=== PATIENT | female | born 1955 | race Caucasian/White ===

== ENCOUNTER 2020-02-08 12:11 | Outpatient (REF) | payer OTHER, SELFPAY | END 2020-02-08 12:12 | disposition home or self-care (01) | LOC: HO.BBR 12:11 | PROVIDERS: Visit Provider Internal Medicine Gastroenterology | DX: E83.110 Hereditary hemochromatosis (principal) | CPT/HCPCS: 99195 ==

== ENCOUNTER 2020-05-22 11:10 | Outpatient (REF) | payer OTHER, SELFPAY | END 2020-05-22 11:11 | disposition home or self-care (01) | LOC: HO.BBR 11:10 | PROVIDERS: Visit Provider Internal Medicine Gastroenterology | DX: Z13.89 Encounter for screening for other disorder (principal) ==

== ENCOUNTER 2020-08-22 10:58 | Outpatient (REF) | payer OTHER, SELFPAY | END 2020-08-22 10:59 | disposition home or self-care (01) | LOC: HO.BBR 10:58 | PROVIDERS: Visit Provider Internal Medicine Gastroenterology | DX: Z13.89 Encounter for screening for other disorder (principal) ==

== ENCOUNTER 2020-11-17 10:57 | Outpatient (REF) | payer OTHER, SELFPAY | END 2020-11-17 10:58 | disposition home or self-care (01) | LOC: HO.BBR 10:57 | PROVIDERS: PCP Internal Medicine; Visit Provider Internal Medicine Gastroenterology | DX: Z13.89 Encounter for screening for other disorder (principal) ==

== ENCOUNTER 2021-06-05 13:51 | Outpatient (REF) | payer OTHER, SELFPAY | END 2021-06-05 13:52 | disposition home or self-care (01) | LOC: HO.BBR 13:51 | PROVIDERS: Visit Provider Internal Medicine Gastroenterology | DX: Z13.89 Encounter for screening for other disorder (principal) ==

== ENCOUNTER 2021-06-26 09:48 | Outpatient (REF) | payer OTHER, SELFPAY | END 2021-06-26 09:49 | disposition home or self-care (01) | LOC: HO.BBR 09:48 | PROVIDERS: Visit Provider Internal Medicine Gastroenterology | DX: Z13.89 Encounter for screening for other disorder (principal) ==

== ENCOUNTER 2021-09-18 10:06 | Outpatient (REF) | payer OTHER, SELFPAY | END 2021-09-18 10:07 | disposition home or self-care (01) | LOC: HO.BBR 10:06 | PROVIDERS: Visit Provider Internal Medicine Gastroenterology | DX: Z13.89 Encounter for screening for other disorder (principal) ==

== ENCOUNTER 2021-12-24 10:13 | Outpatient (REF) | payer OTHER, SELFPAY | END 2021-12-24 10:14 | disposition home or self-care (01) | LOC: HO.BBR 10:13 | PROVIDERS: Visit Provider Internal Medicine Gastroenterology | DX: Z13.89 Encounter for screening for other disorder (principal) ==

== ENCOUNTER 2022-03-18 10:58 | Outpatient (REF) | payer OTHER, SELFPAY | END 2022-03-18 10:59 | disposition home or self-care (01) | LOC: HO.BBR 10:58 | PROVIDERS: Visit Provider Internal Medicine Gastroenterology | DX: Z13.89 Encounter for screening for other disorder (principal) ==

== ENCOUNTER 2022-06-10 10:52 | Outpatient (REF) | payer OTHER, SELFPAY | END 2022-06-10 10:53 | disposition home or self-care (01) | LOC: HO.BBR 10:52 | PROVIDERS: Visit Provider Internal Medicine Gastroenterology | DX: Z13.89 Encounter for screening for other disorder (principal) ==

== ENCOUNTER 2022-09-13 10:59 | Outpatient (REF) | payer OTHER, SELFPAY | END 2022-09-13 11:00 | disposition home or self-care (01) | LOC: HO.BBR 10:59 | PROVIDERS: Visit Provider Internal Medicine Gastroenterology | DX: Z13.89 Encounter for screening for other disorder (principal) ==

== ENCOUNTER 2023-03-02 10:01 | Outpatient (REF) | payer OTHER, MEDICARE, SELFPAY | END 2023-03-02 10:02 | disposition home or self-care (01) | LOC: HO.BBR 10:01 | PROVIDERS: PCP Internal Medicine; Visit Provider Internal Medicine Gastroenterology | DX: Z13.89 Encounter for screening for other disorder (principal) ==

== ENCOUNTER 2023-05-12 12:54 | Outpatient (REF) | payer OTHER, MEDICARE, SELFPAY | END 2023-05-12 12:55 | disposition home or self-care (01) | LOC: HO.BBR 12:54 | PROVIDERS: PCP Internal Medicine; Visit Provider Internal Medicine Gastroenterology | DX: Z13.89 Encounter for screening for other disorder (principal) ==

== ENCOUNTER 2023-07-13 11:07 | Outpatient (REF) | payer OTHER, MEDICARE, SELFPAY | END 2023-07-13 11:08 | disposition home or self-care (01) | LOC: HO.BBR 11:07 | PROVIDERS: PCP Internal Medicine; Visit Provider Internal Medicine Gastroenterology | DX: Z13.89 Encounter for screening for other disorder (principal) ==

== ENCOUNTER 2023-09-13 11:03 | Outpatient (REF) | payer MEDICARE, OTHER, SELFPAY | END 2023-09-13 11:04 | disposition home or self-care (01) | LOC: HO.BBR 11:03 | PROVIDERS: PCP Internal Medicine; Visit Provider Internal Medicine Gastroenterology | DX: Z13.89 Encounter for screening for other disorder (principal) ==

== ENCOUNTER 2023-11-16 10:59 | Outpatient (REF) | payer MEDICARE, OTHER, SELFPAY | END 2023-11-16 11:00 | disposition home or self-care (01) | LOC: HO.BBR 10:59 | PROVIDERS: PCP Internal Medicine; Visit Provider Internal Medicine Gastroenterology | DX: Z13.89 Encounter for screening for other disorder (principal) ==

== ENCOUNTER 2023-12-09 11:09 | Outpatient (REF) | payer MEDICARE, OTHER, SELFPAY | END 2023-12-09 11:10 | disposition home or self-care (01) | LOC: HO.BBR 11:09 | PROVIDERS: PCP Internal Medicine; Visit Provider Internal Medicine Gastroenterology | DX: Z13.89 Encounter for screening for other disorder (principal) ==

== ENCOUNTER 2024-02-23 11:12 | Outpatient (REF) | payer MEDICARE, OTHER, SELFPAY | END 2024-02-23 11:13 | disposition home or self-care (01) | LOC: HO.BBR 11:12 | PROVIDERS: PCP Internal Medicine; Visit Provider Internal Medicine Gastroenterology | DX: Z13.89 Encounter for screening for other disorder (principal) ==

== ENCOUNTER 2024-05-18 10:01 | Outpatient (REF) | payer MEDICARE, OTHER, SELFPAY | END 2024-05-18 10:02 | disposition home or self-care (01) | LOC: HO.BBR 10:01 | PROVIDERS: PCP Internal Medicine; Visit Provider Internal Medicine Gastroenterology | DX: Z13.89 Encounter for screening for other disorder (principal) ==

== ENCOUNTER 2024-06-22 11:10 | Outpatient (REF) | payer MEDICARE, OTHER, SELFPAY ==
--- OUTSIDE RECORDS SUMMARY | 2024-06-22 12:17 | XMS_ITS ---
Author Organization Valdo Azar MD Address [address] [facility] [address] [place] [phone] Care Team Providers Care [employer] Proprietor Name Role Phone Valdo Azar Primary Care Provider [phone] Allergies No Known Allergies Results Component Value Reference Range Notes Iron and TIBC-[id number] Reviewed date:08/19/2023 04:55:46 PM Interpretation: Performing Lab:[facility] [place], [address] [facility], Phone - [phone], Director - Mandeep Notes/Report: Iron Bind.Cap.(TIBC) 302 250-450 ug/dL UIBC 259 118-369 ug/dL Iron 43 27-139 ug/dL Iron Saturation 14 15-55 % Urinalysis, Complete-[id number] Reviewed date:08/19/2023 04:55:46 PM Interpretation: Performing Lab:[facility] [place], [address] [facility], Phone - [phone], Director - Dly Notes/Report: Specific [place] 1.015 1.005-1.030 pH 6.5 5.0-7.5 Urine-Color Yellow Yellow Appearance Clear Clear WBC Esterase Negative Negative Protein Negative Negative/Trace Glucose Negative Negative Ketones Negative Negative Occult Blood Negative Negative Bilirubin Negative Negative Urobilinogen,Semi-Qn 0.2 0.2-1.0 mg/dL Nitrite, Urine Negative Negative Microscopic Examination Micr oscopic follows if indicated. Microscopic Examination See below: Micr oscopic was indicated and was performed. WBC None seen 0 - 5 /hpf RBC 0-2 0 - 2 /hpf Epithelial Cells (non renal) None seen 0 - 10 /hpf Casts None seen None seen /lpf Bacteria None seen None seen/Few Ferritin-[id number] Reviewed date:08/19/2023 04:55:46 PM Interpretation: [facility], [address] [place] [address], Phone - [phone], Director - Dly Notes/Report: Ferritin 14 15-150 ng/mL CBC With Differential/Platel et-[id number] Reviewed date:08/19/2023 04:55:46 PM Interpretation: Performing Lab:[facility] [place], [address] [place] [address], Phone - [phone], Director - MDAmishay Notes/Report: WBC 7.8 3.4-10.8 x10E3/uL RBC 4.37 3.77-5.28 x10E6/uL Hemoglobin 12.8 11.1-15.9 g/dL Hematocrit 40.8 34.0-46.6 % MCV 93 79-97 fL MCH 29.3 26.6-33.0 pg MCHC 31.4 31.5-35.7 g/dL RDW 13.0 11.7-15.4 % Platelets 256 150-450 x10E3/uL Neutrophils 60 Not Estab. % Lymphs 33 Not Estab. % Monocytes 5 Not Estab. % Eos 1 Not Estab. % Basos 1 Not Estab. % Neutrophils (Absolute) 4.7 1.4-7.0 x10E3/uL Lymphs (Absolute) 2.6 0.7-3.1 x10E3/uL Monocytes(Absolute) 0.4 0.1-0.9 x10E3/uL Eos (Absolute) 0.1 0.0-0.4 x10E3/uL Baso (Absolute) 0.1 0.0-0.2 x10E3/uL Immature Granulocytes 0 Not Estab. % Immature Grans (Abs) 0.0 0.0-0.1 x10E3/uL Vitamin D, 60-Lwtasch-[id number] Reviewed date:08/19/2023 04:55:46 PM Interpretation: [facility]forming [facility], [address] [place] [address], Phone - [phone], Director - Dly Notes/Report: Vitamin D, 25-Hydroxy 38.5 30.0-100.0 ng/mL Vitamin D deficiency has been defined by the [place] of [employer] and an Endocrine Society practice guideline as a level of serum 25-OH vitamin D less than 20 ng/mL (1,2). The Endocrine Society went on to further define vitamin D insufficiency as a level between 21 and 29 ng/mL (2). 1. IOM ([place] of [employer]). 2010. Dietary reference intakes for calcium and D. [place]: The National Academies Press. 2. Gagandeep MF, Lisa NC, Nathan BAILEY, et al. Evaluation, treatment, and prevention of vitamin D deficiency: an Endocrine Society clinical practice guideline. JCEM. 2010; 96(7):1911-30. Comp. Metabolic Panel ([id number] Reviewed date:08/19/2023 04:55:47 PM Interpretation: Performing Lab:[facility] [place], [address] [facility], Phone - [phone], Director - Mandeep Notes/Report: Glucose 80 70-99 mg/dL BUN 19 8-27 mg/dL Creatinine 0.76 0.57-1.00 mg/dL eGFR 86 >59 mL/min/1.73 BUN/Creatinine Ratio 25 12-28 Sodium 142 134-144 mmol/L Potassium 3.9 3.5-5.2 mmol/L Chloride 103 96-106 mmol/L Carbon Dioxide, Total 24 20-29 mmol/L Calcium 9.7 8.7-10.3 mg/dL Protein, Total 7.4 6.0-8.5 g/dL Albumin 4.4 3.9-4.9 g/dL Globulin, Total 3.0 1.5-4.5 g/dL A/G Ratio 1.5 1.2-2.2 Bilirubin, Total 0.2 0.0-1.2 mg/dL Alkaline Phosphatase 98 44-121 IU/L AST (SGOT) 22 0-40 IU/L ALT (SGPT) 15 0-32 IU/L LP+Non-HDL Cholesterol-[id number] 5 Reviewed date:08/19/2023 04:55:47 PM Interpretation: Performing Lab:[facility], [address] [facility], [place], Phone - [phone], Director - Mandeep Notes/Report: Cholesterol, Total 184 100-199 mg/dL Triglycerides 157 0-149 mg/dL HDL Cholesterol 68 >39 mg/dL VLDL Cholesterol [place] 27 5-40 mg/dL LDL Chol Calc ([facility]) 89 0-99 mg/dL Non-HDL Cholesterol 116 0-129 mg/dL HCV Antibody-[id number] Reviewed date:08/19/2023 04:55:47 PM Interpretation: Performing Lab:[facility] [place], [address] [facility], [place], Phone - [phone], Director - Mandeep Notes/Report: Hep C Virus Ab Non Reactive Non Reactive HCV antibody alone does not differentiate between previously resolved infection and active infection. Equivocal and Reactive HCV antibody results should be followed up with an HCV RNA test to support the diagnosis of active HCV infection. PDF Report Reviewed date:08/19/2023 04:55:47 PM Interpretation: Performing Lab:[facility], [address] [facility], [place], Phone - [phone], Director - Mandeep Notes/Report: REASON FOR VISIT Annual Wellness Medications Medication SIG (Take, Route, Frequency, Duration) Notes Start Date End Date Status Fosamax 70 MG 1 tablet Orally once a week for 30 day(s) Active Calcium Citrate-Vitamin D Not-Taking Vitamin D 2000 UNIT 1 capsule Orally Onc e a day Not-Taking Social History Tobacco Use: Social History Observation Description Date Details (start date - stop date) Never Smoker NA - NA AUDIT-C (Standard) Question Answer Notes Did you have a drink contain ing alcohol in the past year? Yes How often did you have six o r more drinks on one occasion in the past year? Never (0 point) How many drinks did you have on a typical day when you were drinking in the past year? 1 or 2 drinks (0 point) How often did you have a dri nk containing alcohol in the past year? 2 to 3 times a week (3 points) Points 3 Interpretation Positive Tobacco Control (Standard) Question Answer Notes Tobacco use: Nonsmoker Problems Problem Type SNOMED Code ICD Code Onset Dates Problem Status W/U Status Risk Notes Problem Mixed hyperlipidemia (950638719) Mixed hyperlipidemia (E78.2) Active confirmed Vital Signs Height 5 ft in 08/09/2023 Weight 118.8 lbs 08/09/2023 BMI 23.2 kg/m2 08/09/2023 Temperature 96.4 degrees Fahrenheit 08/09/19 24 Heart Rate 78 /min 08/09/2023 Oximetry 98 % 08/09/2023 Blood pressure systolic 124 mm Hg 08/09/19 24 Blood pressure diastolic 56 mm Hg 024 Encounters Encounter Location Date Provider Diagnosis Valdo Azar MD [address] [phone] 08/09/2023 Valdo Azar Hereditary hemochromatosis E83.110 ; Age-related osteoporosis without current pathological fracture M81.0 ; Family history of malignant neoplasm of ovary Z80.41 ; Mixed hyperlipidemia E78.2 ; Vitamin D deficiency, unspecified E55.9 ; Encounter for general adult medical examination without abnormal findings Z00.00 ; Encounter for screening for malignant neoplasm of colon Z12.11 ; Encounter for screening mammogram for malignant neoplasm of breast Z12.31 ; Encounter for screening for osteoporosis Z13.820 ; Encounter for screening for cardiovascular disorders Z13.6 ; Encounter for immunization Z23 ; Encounter for antibody response examination Z01.84 and Encounter for screening for other viral diseases Z11.59 Assessments Encounter Date Diagnosis (ICD Code) Assessment Notes Treatment Notes Treatment Clinical Notes Section Notes 08/09/2023 Hereditary hemochromatosis (ICD-10 - E83.110) Stable with periodic phlebotomy. She has had to increase her phlebotomy to every 2 months. There may be a dietary issue where there is increased iron intake that she does not realize. Recommend she log her food intake and see where the increased iron intake is in where she can adjust and reduce her iron intake. Hopefully by doing this she will need less frequent phlebotomy 08/09/2023 Age-related osteoporosis without current pathological fracture (ICD-10 - M81.0) Continues on current medical therapy. She is about 5 years into therapy and after 7 years may need to reevaluate therapy options 08/09/2023 Family history of malignant neoplasm of ovary (ICD-10 - Z80.41) Stable with periodic follow-up with gynecology. Given increased risk for breast cancer can continue yearly mammograms as well 08/09/2023 Mixed hyperlipidemia (ICD-10 - E78.2) Check level to verify adequate control 08/09/2023 Vitamin D deficiency, unspecified (ICD-10 - E55.9) Fair control on prior labs as reviewed and recommend additional 2000 units of vitamin D daily for goal level of 50+ 08/09/2023 Encounter for general adult medical examination without abnormal findings (ICD-10 - Z00.00) General healthcare up-to-date. Check routine labs. Healthcare proxy and MOLST form package given for review and completion 08/09/2023 Encounter for screening for malignant neoplasm of colon (ICD-10 - Z12.11) Up-to-date on colon cancer screening 08/09/2023 Encounter for screening mammogram for malignant neoplasm of breast (ICD-10 - Z12.31) Up-to-date on breast cancer screening 08/09/2023 Encounter for screening for osteoporosis (ICD-10 - Z13.820) Up-to-date on osteoporosis screening 08/09/2023 Encounter for screening for cardiovascular disorders (ICD-10 - Z13.6) Blood pressure stable. Can check for comorbidity of hyperlipidemia and hyperglycemia and use this data to further assess risk 08/09/2023 Encounter for immunization (ICD-10 - Z23) Vaccines up-to-date 08/09/2023 Encounter for antibody response examination (ICD-10 - Z01.84) Titers have been checked in the past and is immune to rubeola 08/09/2023 Encounter for screening for other viral diseases (ICD-10 - Z11.59) Can screen for hepatitis C as is the general recommendation 08/09/2023 Other This note was created with voice dictation recognition software and may contain errors of grammar and syntax. Also labs were reviewed with patient. Plan Of Treatment Future Test Test Name Order Date Iron and TIBC-[id number] 01/31/2024 Ferritin-[id number] 01/31/2024 CBC With Differential/Platelet-[id number] Comp. Metabolic Panel ([id number] 2023 Next Appt Details Follow Up: 1 Year, Reason: A nnual Provider Name:Valdo Azar , 08/14/2024 01:15:00 PM, [address] [place] [address], [place] [address], [place], [place], [phone], Progress Notes * Heather SWIFT EDOB:1955 (68 yo F)Acc No.[id number]:08/09/2023 Progress Notes Patient:?Heather SWIFT Provider:?Valdo Azar MD :1955???Age:68 Y???Sex:Female D ate:08/09/2023 Address:[address] [place], [id number] Subjective: * Chief Complaints: * ???Annual Wellness * HPI: ???Depression Screening:?PHQ-2 (2015 Edition)?Little interest or pleasure in doing things??Not at all ?Feeling down, depressed, or hopeless??Not at all ?Total Score?0 ???Medicare Annual Visit:?Type of Visit?-?Subsequent Annual Wellness Visit ?Language or Communication barrier addressed?-?Yes ?Health Risk Assessment?- Do you currently use tobacco products??See Social History ?- How often do you exercise??See Social History ?- In the past two weeks, how often have you felt depressed, down or hopeless??See PHQ2 and PHQ9 ?- How many times have you fallen in your home??Never ?Immunization Status addressed?-?Yes ?Depression Screening?-?PHQ2 done ?Vision Screening?-?Yes, 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 * Surgical History:?varicose v ein ablation 04/2016Cesarean Section stapedectomy 01/2021 * Ocular Surgical History:? * Hospitalization/Major Diagno stic Procedure:?Denies Past Hospitalization * Family History:?Spouse: barb brambila 70 yrs, Healthy.?Father: 95 yrs, Pancreatic cancer at 78.?Mother: alive 100 yrs, HealthyHeart attack 2022.?Daughter(s): alive 36 yrs, Healthy.?Children: alive 33 yrs, Healthy.?Maternal aunt: ovarian cancer.?3 brother(s) , 3 sister(s) - healthy. 2 daughter(s) - healthy. .? (AWV) Family history verified no changes since last visit. * Social History:?Tobacco Use:?Tobacco Control (Standard)?Tobacco use:?Nonsmoker ???Drugs/Alcohol:?Drugs?Have you used drugs other than those for medical reasons in the past 12 months??No ?Caffeine?Intake:?1-2 cups per day ?Do you smoke marijuana?: Denies. ?Do you drink alcohol?: Yes, Socially. ???Miscellaneous:?Exercise: no. ???Household:?Household?Marital status:?Drug/Alcohol:?AUDIT-C (Standard)?Did you have a drink containing alcohol in the past year??Yes ?How often did you have six or more drinks on one occasion in the past year??Never (0 point) ?How many drinks did you have on a typical day when you were drinking in the past year??1 or 2 drinks (0 point) ?How often did you have a drink containing alcohol in the past year??2 to 3 times a week (3 points) ?Points?3 ?Interpretation?Positive * Medications:?TakingFosamax 7 0 MG Tablet 1 tablet Orally once a week Taking Fosamax 70 MG Tablet 1 tablet Orally once a week Not-Taking/PRNCalcium Citrate-Vitamin D Vitamin D 2000 UNIT Capsule 1 capsule Orally Once a day Not-Taking/PRN Calcium Citrate-Vitamin D Not-Taking/PRN Vitamin D 2000 UNIT Capsule 1 capsule Orally Once a day * Allergies:?N.K.D.A.no[Allerg ies Verified] Objective: * Vitals:?Temp:96.4F, HR:78/mi n, BP:Sitting Right Arm: 124/56mm Hg, Wt:118.8lbs, BMI:23.20Index, Ht:5 ft, Oxygen sat %:98%. * ???Past Orders: Lab:CBC WITH AUTO DIFF * Collection Date 02/18/2023 03/31/2021 Collection Time 08:24 AM 10:00 AM Order Date 02/18/2023 03/31/2021 BASO # 0.04 (Ref Range: 0-0.2 x10-3/uL) 0.03 (Ref Range: 0-0.2 x10-3/uL) BASO % 0.6 (Ref Range: %) 0.5 (Ref Range: %) EOS # 0.09 (Ref Range: 0-0.5 x10-3/uL) 0.12 (Ref Range: 0-0.5 x10-3/uL) EOS % 1.5 (Ref Range: %) 2.0 (Ref Range: %) HEMATOCRIT 44.5 (Ref Range: 35-47 %) 43.0 (Ref Range: 35-47 %) HEMOGLOBIN 14.9 (Ref Range: 11.5-16.0 g/dL) 14.4 (Ref Range: 11.5-16.0 g/dL) IMMATURE GRANULOCYTES % 0.3 (Ref Range: %) 0.3 (Ref Range: %) IMMATURE GRANULOCYTES # 0.02 (Ref Range: 0-0.03 x10-3/uL) 0.02 (Ref Range: 0-0.03 x10-3/uL) LYMPH # 1.70 (Ref Range: 1-5.0 x10-3/uL) 1.85 (Ref Range: 1-5.0 x10-3/uL) LYMPH % 27.6 (Ref Range: %) 30.9 (Ref Range: %) MCH 31.5 (Ref Range: 27-32 pg) 30.9 (Ref Range: 27-32 pg) MCHC 33.5 (Ref Range: 32-37 g/dL) 33.5 (Ref Range: 32-37 g/dL) MCV 94.1 (Ref Range: 79-98 fL) 92.3 (Ref Range: 79-98 fL) MONO # 0.43 (Ref Range: 0.2-1.0 x10-3/uL) 0.35 (Ref Range: 0.2-1.0 x10-3/uL) MONO % 7.0 (Ref Range: %) 5.8 (Ref Range: %) MEAN PLATELET VOLUME 10.0 (Ref Range: 7-11 fL) 10.7 (Ref Range: 7-11 fL) ABSOLUTE NEUT 3.89 (Ref Range: 1.5-7.0 x10-3/uL) 3.62 (Ref Range: 1.5-7.0 x10-3/uL) NEUT % 63.0 (Ref Range: %) 60.5 (Ref Range: %) NRBC # AUTO DIFF 0.00 (Ref Range: <0.1 x10-3/uL) 0.00 (Ref Range: <0.1 x10-3/uL) NRBC % AUTO DIFF 0.0 (Ref Range: <1 %) 0.0 (Ref Range: <1 %) PLT COUNT 248 (Ref Range: 130-400 x10-3/uL) 216 (Ref Range: 130-400 x10-3/uL) RBC 4.7 (Ref Range: 3.8-4.8 x10-6/uL) 4.7 (Ref Range: 3.8-4.8 x10-6/uL) RDW 13.3 (Ref Range: 11-15 %) 15.1?H (Ref Range: 11-15 %) WBC 6.2 (Ref Range: 4.8-10.8 x10-3/uL) 6.0 (Ref Range: 4.8-10.8 x10-3/uL) * Lab:COMPREHENSIVE METABOLIC PANEL * Collection Date 12/10/2022 12/29/2021 12/23/2020 0 Collection Time 07:37 AM 08:02 AM 07:56 AM 07:34 AM Order Date 12/10/2022 12/29/2021 12/23/2020 06/05/2019 ALBUMIN 3.7 (Ref Range: 3.2-5.0 G/dL) 3.6 (Ref Range: 3.2-5.0 G/dL) 3.9 (Ref Range: 3.2-5.0 G/dL) 3.6 (Ref Range: 3.2-5.0 G/dL) ALK PHOS 89 (Ref Range: 42-121 U/L) 88 (Ref Range: 42-121 U/L) 84 (Ref Range: 42-121 U/L) 85 (Ref Range: 42-121 U/L) SGPT 22 (Ref Range: 10-60 U/L) 26 (Ref Range: 10-60 U/L) 19 (Ref Range: 10-60 U/L) 56 (Ref Range: 10-60 U/L) ANION GAP 5 (Ref Range: 3-11) 7 (Ref Range: 3-11) 8 (Ref Range: 3-11) 5 (Ref Range: 3-11) SGOT 18 (Ref Range: 10-42 U/L) 24 (Ref Range: 10-42 U/L) 19 (Ref Range: 10-42 U/L) 36 (Ref Range: 10-42 U/L) BILI,TOTAL 0.6 (Ref Range: 0.0-1.4 mg/dL) 0.3 (Ref Range: 0.0-1.4 mg/dL) 0.5 (Ref Range: 0.0-1.4 mg/dL) 0.5 (Ref Range: 0.0-1.4 mg/dL) BUN 12 (Ref Range: 5-25 mg/dL) 17 (Ref Range: 5-25 mg/dL) 13 (Ref Range: 5-25 mg/dL) 18 (Ref Range: 5-25 mg/dL) CALCIUM 8.4?L (Ref Range: 8.5-10.5 mg/dL) 9.2 (Ref Range: 8.5-10.5 mg/dL) 8.6 (Ref Range: 8.5-10.5 mg/dL) 8.4?L (Ref Range: 8.5-10.5 mg/dL) CHLORIDE 110 (Ref Range: 96-110 mmol/L) 110 (Ref Range: 96-110 mmol/L) 105 (Ref Range: 96-110 mmol/L) 109 (Ref Range: 96-110 mmol/L) CO2 29 (Ref Range: 21-32 mmol/L) 27 (Ref Range: 21-32 mmol/L) 28 (Ref Range: 21-32 mmol/L) 27 (Ref Range: 21-32 mmol/L) CREAT 0.79 (Ref Range: 0.5-1.1 mg/dL) 0.87 (Ref Range: 0.5-1.1 mg/dL) 0.73 (Ref Range: 0.5-1.1 mg/dL) 0.78 (Ref Range: 0.5-1.1 mg/dL) GLOMERULAR FILTRATION RATE 83 (Ref Range: >60) > 60 > 60 > 60 GLUCOSE 83 (Ref Range: 70-100 mg/dL) 86 (Ref Range: 70-100 mg/dL) 77 (Ref Range: 70-100 mg/dL) 87 (Ref Range: 70-100 mg/dL) POTASSIUM 4.2 (Ref Range: 3.5-5.5 mmol/L) 4.4 (Ref Range: 3.5-5.5 mmol/L) 4.3 (Ref Range: 3.5-5.5 mmol/L) 4.5 (Ref Range: 3.5-5.5 mmol/L) SODIUM 144 (Ref Range: 135-145 mEq/L) 144 (Ref Range: 135-145 mEq/L) 141 (Ref Range: 135-145 mEq/L) 141 (Ref Range: 135-145 mEq/L) TOTAL PROTEIN 7.2 (Ref Range: 6.0-8.0 G/dL) 6.8 (Ref Range: 6.0-8.0 G/dL) 7.4 (Ref Range: 6.0-8.0 G/dL) 6.9 (Ref Range: 6.0-8.0 G/dL) * Lab:LIPID PROFILE * Collection Date 12/10/2022 12/29/2021 12/23/2020 0 Collection Time 07:37 AM 08:02 AM 07:56 AM 07:34 AM Order Date 12/10/2022 12/29/2021 12/23/2020 06/05/2019 CHOLESTEROL 153 (Ref Range: 0-200 mg/dL) 151 (Ref Range: 0-200 mg/dL) 175 (Ref Range: 0-200 mg/dL) 163 (Ref Range: 0-200 mg/dL) HDL CHOLESTEROL 66 (Ref Range: >40 mg/dL) 55 (Ref Range: >40 mg/dL) 70 (Ref Range: >40 mg/dL) 66 (Ref Range: >40 mg/dL) LDL CALCULATED 76 (Ref Range: 0-100 mg/dL) 84 (Ref Range: 0-100 mg/dL) 95 (Ref Range: 0-100 mg/dL) 83 (Ref Range: 0-100 mg/dL) TC-HDLC RATIO 2.3 (Ref Range: 0-4.4 mg/dL) 2.8 (Ref Range: 0-4.4 mg/dL) 2.5 (Ref Range: 0-4.4 mg/dL) 2.5 (Ref Range: 0-4.4 mg/dL) TRIGLYCERIDES 58 (Ref Range: 0-150 mg/dL) 62 (Ref Range: 0-150 mg/dL) 52 (Ref Range: 0-150 mg/dL) 71 (Ref Range: 0-150 mg/dL) * Lab:FERRITIN * Collection Date 02/18/2023 12/10/2022 12/29/2021 1 Collection Time 08:24 AM 07:37 AM 08:02 AM 10:00 AM Order Date 02/18/2023 12/10/2022 12/29/2021 03/31/2021 FERRITIN 75 (Ref Range: 8-252 ng/mL) 25 (Ref Range: 8-252 ng/mL) 18 (Ref Range: 8-252 ng/mL) 23 (Ref Range: 8-252 ng/mL) * Lab:TOTAL IRON BINDING CAPAC ITY * Collection Date 02/18/2023 12/29/2021 03/31/2021 Collection Time 08:24 AM 08:02 AM 10:00 AM Order Date 02/18/2023 12/29/2021 03/31/2021 % FE SATURATION 60?H (Ref Range: 15-50 %) 13?L (Ref Range: 15-50 %) 42 (Ref Range: 15-50 %) IRON (FE) 155?H (Ref Range: 40-150 ug/dL) 31?L (Ref Range: 40-150 ug/dL) 110 (Ref Range: 40-150 ug/dL) TOTAL IRON BINDING CAPACITY 257 (Ref Range: 250-450 ug/dL) 236?L (Ref Range: 250-450 ug/dL) 259 (Ref Range: 250-450 ug/dL) * Lab:VITAMIN D, 25-HYDROXY * Collection Date 12/10/2022 12/29/2021 12/23/2020 0 Collection Time 07:37 AM 08:02 AM 07:56 AM 07:34 AM Order Date 12/10/2022 12/29/2021 12/23/2020 06/05/2019 VITAMIN D, 25-HYDROXY 29?L (Ref Range: 30-80 ng/mL) 40 (Ref Range: 30-80 ng/mL) 39 (Ref Range: 30-80 ng/mL) 49 (Ref Range: 30-80 ng/mL) * Lab:URINALYSIS * Collection Date 12/10/2022 12/29/2021 12/23/2020 0 Collection Time 07:37 AM 08:02 AM 07:56 AM 07:34 AM Order Date 12/10/2022 12/29/2021 12/23/2020 06/05/2019 BACTERIA, URINE NEGATIVE (Ref Range: NEGATIVE) NEGATIVE (Ref Range: NEGATIVE) NR NR WBC, URINE 9?H (Ref Range: 0-4 /HPF) 5?H (Ref Range: 0-4 /HPF) NR NR BILIRUBIN, URINE NEGATIVE (Ref Range: NEGATIVE) NEGATIVE (Ref Range: NEGATIVE) NEGATIVE (Ref Range: NEGATIVE) NEGATIVE (Ref Range: NEGATIVE) BLOOD, URINE NEGATIVE (Ref Range: NEGATIVE) NEGATIVE (Ref Range: NEGATIVE) NEGATIVE (Ref Range: NEGATIVE) NEGATIVE (Ref Range: NEGATIVE) HYALINE CAST, URINE NR 1 (Ref Range: 0-3 /LPF) NR NR EPITH CELLS, URINE 11 (Ref Range: 0-60 /LPF) 17 (Ref Range: 0-60 /LPF) NR NR GLUCOSE, (UA) NEGATIVE (Ref Range: NEGATIVE mg/dL) NEGATIVE (Ref Range: NEGATIVE mg/dL) NEGATIVE (Ref Range: NEGATIVE mg/dL) NEGATIVE (Ref Range: NEGATIVE mg/dL) KETONE, URINE NEGATIVE (Ref Range: NEGATIVE mg/dL) NEGATIVE (Ref Range: NEGATIVE mg/dL) NEGATIVE (Ref Range: NEGATIVE mg/dL) NEGATIVE (Ref Range: NEGATIVE mg/dL) LEUKOCYTE ESTERASE, URINE SMALL?A (Ref Range: NEGATIVE) SMALL?A (Ref Range: NEGATIVE) NEGATIVE (Ref Range: NEGATIVE) NEGATIVE (Ref Range: NEGATIVE) NITRITE, URINE NEGATIVE (Ref Range: NEGATIVE) NEGATIVE (Ref Range: NEGATIVE) NEGATIVE (Ref Range: NEGATIVE) NEGATIVE (Ref Range: NEGATIVE) PH, URINE 7.0 (Ref Range: 5.0-8.0) 6.0 (Ref Range: 5.0-8.0) 7.5 (Ref Range: 5.0-8.0) 6.5 (Ref Range: 5.0-8.0) PROTEIN, URINE NEGATIVE (Ref Range: <= TRACE mg/dl) NEGATIVE (Ref Range: <= TRACE mg/dl) NEGATIVE (Ref Range: <= TRACE mg/dl) NEGATIVE (Ref Range: <= TRACE mg/dl) RBC, URINE 3 (Ref Range: 0-4 /HPF) 2 (Ref Range: 0-4 /HPF) NR NR SPECIFIC GRAVITY, URINE 1.016 (Ref Range: 1.003-1.030) 1.017 (Ref Range: 1.003-1.030) 1.010 (Ref Range: 1.003-1.030) 1.021 (Ref Range: 1.003-1.030) UROBILINOGEN, URINE 0.2 (Ref Range: 0.2-1.0 E.U./dL) 0.2 (Ref Range: 0.2-1.0 E.U./dL) 0.2 (Ref Range: 0.2-1.0 E.U./dL) 0.2 (Ref Range: 0.2-1.0 E.U./dL) ???Lab:HEPATITIS C VIRUS SCREEN (Order Date - 12/10/2022) (Collection Date & Time - 12/10/2022 07:37 AM)?ValueReference Range?HEPATITIS C VIRUS SCREENNEGATIVENEGATIVE - ???Lab:MEASLES PROFILE (Order Date - 06/05/2019) (Collection Date & Time - 06/05/2019 07:34 AM)?ValueReference Range?MEASLES IGG QUANT> 300.0 >=16.5 - AU/mL?MEASLES IGGPOSITIVEPOSITIVE - * Imaging:MAMMOGRAM, SCREENING * Performed Date 08/03/2022 10:09 AM Order Date 08/03/2022 03/14/2015 06/22/2016 06/28/2017 * Imaging:Miriam Dexa Axial Skele ton * Performed Date 07/23/2022 06/30/2018 08:32 AM Order Date 08/02/2022 06/30/2018 Clinical Info: this was already del angelaidan JohnsonJERRYNati 08/03/2022 12:08:35 PM EDT > * Imaging:Colonoscopy * Performed Date Order Date 02/20/2008 08/26/2017 * Examination: ???General Examination: ?GENERAL APPEARANCE:?Age appropriate, in no acute distress, well developed, well nourished.?HEAD:?normocephalic, atraumatic.?EYES:?extraocular movement intact (EOMI), sclera non-icteric.?NECK/THYROID:?neck supple, full range of motion, no thyromegaly.?LYMPH NODES:?no cervical adenopathy.?HEART:?regular rate and rhythm, S1, S2 normal.?LUNGS:?clear to auscultation bilaterally.?BACK:?no kyphosis, no scoliosis.?EXTREMITIES:?no clubbing, cyanosis, or edema.?NEUROLOGIC:?nonfocal, alert and oriented, gait normal, motor strength grossly normal upper and lower extremities, no tremor.?PSYCH:?alert, oriented, good eye contact.?Mini Cog: ?Word Recall?Word List Version: 2, Score: 3 points.?Clock Draw?Score: 2 points.?Total Score?Score: 5 points.? 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13.?Encounter for screening for other viral diseases - Z11.59? Plan: * Treatment: ? Value Reference Range ?Specific [place] 1.015 1.005- 1.030 - * ?pH 6.5 5.0-7.5 - * ?Urine-Color Yellow Yellow - * ?Appearance Clear Clear - * ?WBC Esterase Negative Negative - * ?Protein Negative Negative/Trace - * ?Glucose Negative Negative - * ?Ketones Negative Negative - * ?Occult Blood Negative Negative - * ?Bilirubin Negative Negative - * ?Urobilinogen,Semi-Qn 0.2 0. 2-1.0 - mg/dL * ?Nitrite, Urine Negative Negative - * ?WBC None seen 0 - 5 - /hpf * ?RBC 0-2 0 - 2 - /hpf * ?Epithelial Cells (non renal) None seen 0 - 10 - /hpf * ?Casts None seen None seen - /lp f * ?Bacteria None seen None seen/Few - * ?Microscopic Examination See below: - * This lab was reviewed by Nicko Azar on 08/19/2023 at 16:55 PM EDT ?LAB: CBC With Differential/Platelet-[id number]* ? Value Reference Range ?WBC 7.8 3.4-10.8 - x10E 3/uL * ?RBC 4.37 3.77-5.28 - x10 E6/uL * ?Hemoglobin 12.8 11.1-15.9 - g/dL * ?Hematocrit 40.8 34.0-46.6 - % * ?MCV 93 79-97 - fL * ?MCH 29.3 26.6-33.0 - pg * ?MCHC 31.4 L 31.5-35.7 - g/d L * ?RDW 13.0 11.7-15.4 - % * ?Platelets 256 150-450 - x10 E3/uL * ?Neutrophils 60 Not Estab. - % * ?Lymphs 33 Not Estab. - % * ?Monocytes 5 Not Estab. - % * ?Eos 1 Not Estab. - % * ?Basos 1 Not Estab. - % * ?Neutrophils (Absolute) 4.7 1.4-7.0 - x10E3/uL * ?Lymphs (Absolute) 2.6 0.7-3 .1 - x10E3/uL * ?Monocytes(Absolute) 0.4 0.1 -0.9 - x10E3/uL * ?Eos (Absolute) 0.1 0.0-0.4 - x10E3/uL * ?Baso (Absolute) 0.1 0.0-0.2 - x10E3/uL * ?Immature Granulocytes 0 N ot Estab. - % * ?Immature Grans (Abs) 0.0 0. 0-0.1 - x10E3/uL * This lab was reviewed by Nicko Azar on 08/19/2023 at 16:55 PM EDT ?LAB: Comp. Metabolic Panel ([id number]* ? Value Reference Range ?Glucose 80 70-99 - mg/dL * ?BUN 19 8-27 - mg/dL * ?Creatinine 0.76 0.57-1.00 - mg/dL * ?BUN/Creatinine Ratio 25 12 -28 - * ?Sodium 142 134-144 - mmol/ L * ?Potassium 3.9 3.5-5.2 - mmo l/L * ?Chloride 103 96-106 - mmol/ L * ?Carbon Dioxide, Total 24 2 0-29 - mmol/L * ?Calcium 9.7 8.7-10.3 - mg/d L * ?Protein, Total 7.4 6.0-8.5 - g/dL * ?Albumin 4.4 3.9-4.9 - g/dL * ?Globulin, Total 3.0 1.5-4.5 - g/dL * ?A/G Ratio 1.5 1.2-2.2 - * ?Bilirubin, Total 0.2 0.0-1. 2 - mg/dL * ?Alkaline Phosphatase 98 44 -121 - IU/L * ?AST (SGOT) 22 0-40 - IU/L * ?ALT (SGPT) 15 0-32 - IU/L * ?eGFR 86 >59 - mL/min/1. 73 * This lab was reviewed by Nicko Azar on 08/19/2023 at 16:55 PM EDT Clinical Notes: General healthcare up-to-date. Check routine labs. Healthcare proxy and MOLST form package given for review and completion??2.?Hereditary hemochromatosis?LAB: Iron and TIBC-[id number]* ? Value Reference Range ?Iron Bind.Cap.(TIBC) 302 25 0-450 - ug/dL * ?UIBC 259 118-369 - ug/dL * ?Iron 43 27-139 - ug/dL * ?Iron Saturation 14 L 15-55 - % * This lab was reviewed by Nicko Azar on 08/19/2023 at 16:55 PM EDT ?LAB: Ferritin-[id number]* ? Value Reference Range ?Ferritin 14 L 15-150 - ng/mL * This lab was reviewed by Nicko Azar on 08/19/2023 at 16:55 PM EDT ?LAB: CBC With Differential/Platelet-[id number] (Ordered for 01/31/2024) ?LAB: Iron and TIBC-896214 (Ordered for 01/31/2024) ?LAB: Comp. Metabolic Panel ([id number] (Ordered for 01/31/2024) ?LAB: Ferritin-[id number] (Ordered for 01/31/2024) Clinical Notes: Stable with periodic phlebotomy. She has had to increase her phlebotomy to every 2 months. There may be a dietary issue where there is increased iron intake that she does not realize.Recommend she log her food intake and see where the increased iron intake is in where she can adjust and reduce her iron intake. Hopefully by doing this she will need less frequent phlebotomy? 3.?Age-related osteoporosis without current pathological fracture? Clinical Notes: Continues on current medical therapy. She is about 5 years into therapy and after 7years may need to reevaluate therapy options??4.?Family history of malignant neoplasm of ovary? Clinical Notes: Stable with periodic follow-up with gynecology. Given increased risk for breast cancer can continue yearly mammograms as well??5.?Mixed hyperlipidemia?LAB: LP+Non-HDL Cholesterol-[id number]* ? Value Reference Range ?Cholesterol, Total 184 100- 199 - mg/dL * ?Triglycerides 157 H 0-149 - m g/dL * ?HDL Cholesterol 68 >39 - m g/dL * ?VLDL Cholesterol Kavon 27 5- 40 - mg/dL * ?LDL Chol Calc ([facility]) 89 0-9 9 - mg/dL * ?Non-HDL Cholesterol 116 0-1 29 - mg/dL * This lab was reviewed by Nicko Azar on 08/19/2023 at 16:55 PM EDT Clinical Notes: Check level to verify adequate control??6.?Vitamin D deficiency, unspecified?LAB: Vitamin D, 59-Bejuhis-460224* ? Value Reference Range ?Vitamin D, 25-Hydroxy 38.5 3 0.0-100.0 - ng/mL * This lab was reviewed by Nicko Azar on 08/19/2023 at 16:55 PM EDT Clinical Notes: Fair control on prior labs as reviewed and recommend additional 2000 units of vitamin D daily for goal level of 50+??7.?Encounter for screening for malignant neoplasm of colon? Clinical Notes: Up-to-date on colon cancer screening??8.?Encounter for screening mammogram for malignant neoplasm of breast? Clinical Notes: Up-to-date on breast cancer screening??9.?Encounter for screening for osteoporosis? Clinical Notes: Up-to-date on osteoporosis screening??10.?Encounter for screening for cardiovascular disorders? Clinical Notes: Blood pressure stable. Can check for comorbidity of hyperlipidemia and hyperglycemia and use this data to further assess risk?? 11.?Encounter for immunization? Clinical Notes: Vaccines up-to-date??12.?Encounter for antibody response examination? Clinical Notes: Titers have been checked in the past and is immune to rubeola?? 13.?Encounter for screening for other viral diseases?LAB: HCV Antibody-[id number]* ? Value Reference Range ?Hep C Virus Ab Non Reactive Non Reac tive - * This lab was reviewed by Nicko Azar on 08/19/2023 at 16:55 PM EDT Clinical Notes: Can screen for hepatitis C as is the general recommendation?? 14.?Others? Clinical Notes: This note was created with voice dictation recognition software and may contain errors of grammar and syntax. Also labs were reviewed with patient.?? * Procedure Codes:?1124F ACP D ISCUSS-NO DSCNMKR DOCD, Modifiers: 25 * Preventive Medicine:? ??YOUR PREVENTIVE WELLNESS PLAN:?Prenar?The Recommended Frequency is:?1 dose age 65+ ?Breast Cancer Screening (Mammogram):?The Recommended Frequency is:?Every 1 year, age 50-74 (without family history), Every 2 year, age 40-50 (without family history) ?Osteoporosis Screening (Bone Density Measurement):?The Recommended Frequency is:?Routinely, for women ages 65+ ?Colorectal Cancer Screening:?The Recommended Frequency is:?Every 10 years, Colonoscopy, Every 3 years, Cologuard ?Pneumococcal (Pneumonia) Vaccine:?The Recommended Frequency is:?1 dose age 65+ ?Influenza (Flu) Vaccine:?The Recommended Frequency is:?Annually ??Counseling:?BP Management:?LIFESTYLE RECOMMENDATION:?Lifestyle education regarding hypertension ?PHYSICAL ACTIVITY RECOMMENDATION:?Given encouragement to exercise ??Immunizations:?Hep A?06/07/2017.?Hep B?.?TdaP?Last Tdap was administered?04/19/2018 ?Tetanus?Last Tetanus was administered?10/16/2007 ?Influenza?Last Influenza was administered?02/17/2023 ?COVID?[place]?Pfizer ?First Dose?04/22/2020 ?Second Dose?05/13/2020 ?PCV 20 (Prevnar)?Last PCV 20 was administered?08/09/23 ??Screenings:?Breast Cancer Screening:?Date of most recent screening:?08/03/2022 ?Colon cancer screening?Provider recommendation:?10 years ?Date of most recent screening:?08/26/2017 ?Osteoporosis Screening:?Date of most recent screening:?08/02/2022 * Follow Up:?1 Year (Reason: A nnual) Care Plan: * Problems:? * Images: Billing Information: * Visit Code:? G0439 Subsequent Annual Wellness. G0442 Annual Alcohol Misuse Screening, 15 min. Modifiers: 25 G0446 Cardiovascular Screening. Modifiers: 25 G0444 Annual Depression Screening, 15 min. Modifiers: 59 * Procedure Codes:? 1124F ACP DISCUSS-NO DSCNMKR DOCD. Modifiers: 25 * Sign off status: Completed true * Provider:?Valdo Azar MD Date:?08/08 Generated for Janette lo/Stan/eTransmitting on:?06/22/2024 12:17 PM EST History and Physical Notes * HPI (History of Present Illness) Category Sub-Category Detail Notes Category Not es Medicare Annual Visit Type of Visit -: Subsequ ent Annual Wellness Visit Language or Communication gerard ng addressed -: Yes Health Risk Assessment - Do you currentl y use tobacco products?: See Social History - How often do you exercise?: See Social History - In the past two weeks, how often have you felt depressed, down or hopeless?: See PHQ2 and PHQ9 - How many times have you fallen in your home?: Never Immunization Status addressed -: Yes Vision Screening -: Yes, 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 Depression Screening -: PHQ2 done Hearing Screening -: Yes, no gross abnormalities Fall Risk and Home Safety Get Up and Go Evaluati on: under 12 seconds Medication evaluation and reconcilliatio n performed: Yes Psychosocial Risks -: No overt psychoso cial risks shown, observed, or mentioned Behavioral Risks -: Patient seems armond y well adjusted and no behavioral issues noted Activities of daily living -: Not impaired Cognitive Screening -: No overt cognitiv e deficiency is apparent by direct observation Depression Screening PHQ-2 (2015 Edition) Little interest or pleasure in doing things?: Not at all Feeling down, depressed, or hopeless?: N ot at all Total Score: 0 Examination Category Sub-Category Detail Notes Category Not es General Examination GENERAL APPEARANCE: Age appr opriate, in no acute distress, well developed, well nourished HEAD: normocephalic, atrau matic EYES: extraocular movement intact (EOMI), sclera non-icteric NECK/THYROID: neck supple, full ra nge of motion, no thyromegaly HEART: regular rate and rhy thm, S1, S2 normal LUNGS: clear to auscultatio n bilaterally NEUROLOGIC: nonfocal, alert and oriented, gait normal, motor strength grossly normal upper and lower extremities, no tremor EXTREMITIES: no clubbing, cyanosi s, or edema BACK: no kyphosis, no scol iosis LYMPH NODES: no cervical adenopat hy PSYCH: alert, oriented, goo d eye contact Mini Cog Word Recall Word List Version: 2, Score: 3 points Clock Draw Score: 2 points Total Score Score: 5 points
--- OUTSIDE RECORDS SUMMARY | 2024-06-22 12:18 | XMS_ITS | Patient Health Record ---
Author Organization Valdo Nguyen MD Address [address] [place] [phone] Care Team Providers [employer] Name Role Phone Valdo Nguyen Primary Care Provider Allergies No Known Allergies Results Component Value Reference Range Notes Iron and TIBC-[id number] Reviewed date:08/19/2023 04:55:46 PM Interpretation: Performing Lab:[facility] [place], [address] [facility], Phone - [phone], Director - Dly Notes/Report: Iron Bind.Cap.(TIBC) 302 250-450 ug/dL UIBC 259 118-369 ug/dL Iron 43 27-139 ug/dL Iron Saturation 14 15-55 % Urinalysis, Complete-[id number] Reviewed date:08/19/2023 04:55:46 PM Interpretation: Performing Lab:[facility] [place], [address] [facility], Phone - [phone], Director - MDAmishay Notes/Report: Specific [place] 1.015 1.005-1.030 pH 6.5 5.0-7.5 Urine-Color Yellow [...] seen /lpf Bacteria None seen None seen/Few Ferritin-877383 Reviewed date:08/19/2023 04:55:46 PM Interpretation: [facility]forming [facility], [address] [place] [address], Phone - [phone], Director - Mandeep Notes/Report: Ferritin 14 15-150 ng/mL CBC With Differential/Platel et-[id number] Reviewed date:08/19/2023 04:55:46 PM Interpretation: Performing Lab:[facility] [place], [address] [place] [address], Phone - [phone], Director - Mandeep Notes/Report: WBC 7.8 3.4-10.8 x10E3/uL RBC 4.37 [...] Grans (Abs) 0.0 0.0-0.1 x10E3/uL Vitamin D, 66-Xasnlix-225507 Reviewed date:08/19/2023 04:55:46 PM Interpretation: Performing [facility], [address] [place] [address], Phone - [phone], Director - Mandeep Notes/Report: Vitamin D, 25-Hydroxy 38.5 30.0-100.0 ng/mL Vitamin D deficiency has been defined by the Queen of Medicine and an Endocrine Society practice guideline as a level of serum 25-OH vitamin D less than 20 ng/mL (1,2). The Endocrine Society went on to further define vitamin D insufficiency as a level between 21 and 29 ng/mL (2). 1. IOM (Queen of Medicine). 2010. Dietary reference intakes for calcium and D. [place]: The National Academies Press. 2. Gagandeep MF, Lisa NC, Nathan BAILEY, et al. Evaluation, treatment, and prevention of vitamin D deficiency: an Endocrine Society clinical practice guideline. JCEM. 2010; 967):1911-30. Comp. Metabolic Panel (14)-3 Reviewed date:08/19/2023 04:55:47 PM Interpretation: Performing Lab:[facility] [place], [address] [facility], Phone - [phone], Director - Mandeep Notes/Report: Glucose 80 70-99 [...] IU/L ALT (SGPT) 15 0-32 IU/L LP+Non-HDL Cholesterol-80140 5 Reviewed date:08/19/2023 04:55:47 PM Interpretation: Performing Lab:[facility] [place], [address] [facility], [place], Phone - [phone], Director - Mandeep Notes/Report: Cholesterol, Total 184 100-199 mg/dL Triglycerides 157 0-149 mg/dL HDL Cholesterol 68 >39 mg/dL VLDL Cholesterol Kavon 27 5-40 mg/dL LDL Chol Calc (NIH) 89 0-99 mg/dL Non-HDL Cholesterol 116 0-129 mg/dL HCV Antibody-013018 Reviewed date:08/19/2023 04:55:47 PM Interpretation: Performing Lab:[facility] [place], [address], [place], Phone - [phone], Director - Mandeep Notes/Report: Hep C Virus Ab Non Reactive Non Reactive HCV antibody alone does not differentiate between previously resolved infection and active infection. Equivocal and Reactive HCV antibody results should be followed up with an HCV RNA test to support the diagnosis of active HCV infection. PDF Report Reviewed date:08/19/2023 04:55:47 PM Interpretation: Performing Lab:[facility] [place], [address], [place], Phone - [phone], Director - Mandeep Notes/Report: Miriam Screening Digital Reviewed date:08/19/2023 04:55:46 PM Interpretation: Performing Lab: Notes/Report: Original Ordering Provider: VALDO NGUYEN MD [facility] Reason For Referral No Information Medications Medication SIG (Take, Route, Frequency, Duration) Notes Start Date End Date Status Fosamax 70 MG 1 tablet Orally once a week for 30 day(s) Active Calcium Citrate-Vitamin D Not-Taking Vitamin D 2000 UNIT 1 capsule Orally Onc e a day Not-Taking Immunizations Vaccine Route Administration Date Status Comments *PREVNAR 20 Unknown 06/13/2023 Administered *Tdap IM Intramuscular 04/19/2018 Administered COVID 19 (Pfizer 12+) Unknown 08/28/2021 Administered COVID-19 Pfizer BiValent Booster Unknown 01/22/2022 Administered QHHDS-24-Pjfwig Vaccine Unknown 04/22/2020 Administered VPZKH-48-Wqgdic Vaccine Unknown 05/13/2020 Administered NKNEG-47-Beqxgt Vaccine Unknown 02/17/2021 Administered Hep A, adult Unknown 07/18/2008 Administered Hep A, adult Unknown 06/07/2017 Administered Hep B, adult dosage, for intramuscular use Unknown 06/07/2017 Administered Hep B, adult dosage, for intramuscular use Unknown 09/22/2017 Administered Hep B, adult dosage, for intramuscular use IM Intramuscular 12/29/2017 Administered Mfd by [employer] Influenza Unknown 03/02/2018 Administered Influenza Unknown 01/31/2020 Administered patient awar e Influenza, seasonal, injectable, preservative free, 4 yrs and above Unknown 02/16/2016 Administered Est date - given at work Influenza-Afluria (IIV4) Unknown 02/17/2023 Administered Td (adult) preservative free Unknown 10/16/2007 Administered Social History Tobacco Use: Social History Observation [...] Problem Status W/U Status Risk Notes Problem Vitamin D deficiency (94242884) Vitamin D deficiency, unspecified (E55.9) Active confirmed Problem Mixed hyperlipidemia (589836602) Mixed hyperlipidemia (E78.2) Active confirmed Problem Hereditary hemochromatosis (69870747) Hereditary hemochromatosis (E83.110) Active confirmed Problem Hypocalcemia (4267791) Hypocalcemia (E83.51) Active confirmed Problem Age-related osteoporosis (615971066) Age-related osteoporosis without current pathological fracture (M81.0) Active confirmed Problem Family history of malignant neoplasm of ovary (153180296) Family history of malignant neoplasm of ovary (Z80.41) Active confirmed Problem 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 confirmed Problem Hemangioma of skin and subcutaneous tissue (394092520) Hemangioma of skin and subcutaneous tissue (D18.01) Problem resolved confirmed Vital Signs Heart Rate 78 /min 08/09/2023 Temperature 96.4 degrees Fahrenheit 08/09/2023 Blood pressure diastolic 56 mm Hg 08/09/2023 Oximetry 98 % 08/09/2023 Height 5 ft in 08/09/2023 Blood pressure systolic 124 mm Hg 08/09/2023 Weight 118.8 lbs 08/09/2023 BMI 23.2 kg/m2 08/09/2023 Encounters Encounter Location Date Provider Diagnosis Valdo Nguyen MD [address] [id number] 08/09/2023 Valdo Nguyen Hereditary hemochromatosis E83.110 ; Age-related osteoporosis without [...] for screening for other viral diseases Z11.59 Valdo Nguyen MD [address] [id number] 11/09/2023 Valdo Nguyen Assessments Encounter Date Diagnosis (ICD Code) Assessment [...] were reviewed with patient. Plan Of Treatment Pending Test Test Name Order Date COMPREHENSIVE METABOLIC PANEL 12/10/2022 MAGNESIUM 12/10/2022 PTH, INTACT 12/10/2022 CBC 08/02/2022 CBC 05/09/2019 CBC 07/29/2020 CBC 07/29/2021 CBC 04/06/2017 COMPREHENSIVE METABOLIC PANEL 04/06/2017 COMPREHENSIVE METABOLIC PANEL 07/29/2021 COMPREHENSIVE METABOLIC PANEL 07/29/2020 COMPREHENSIVE METABOLIC PANEL 05/09/2019 COMPREHENSIVE METABOLIC PANEL 08/02/2022 FERRITIN 07/29/2021 FERRITIN 08/02/2022 FERRITIN 07/29/2020 FERRITIN 05/09/2019 FERRITIN 04/06/2017 HEPATITIS C VIRUS SCREEN 08/02/2022 LIPID PROFILE 08/02/2022 LIPID PROFILE 07/29/2021 LIPID PROFILE 05/09/2019 LIPID PROFILE 07/29/2020 LIPID PROFILE 04/06/2017 TOTAL IRON BINDING CAPACITY 07/29/2021 URINALYSIS 08/02/2022 URINALYSIS 04/06/2017 URINALYSIS 05/09/2019 URINALYSIS 07/29/2020 URINALYSIS 07/29/2021 VITAMIN D, 25-HYDROXY 08/02/2022 VITAMIN D, 25-HYDROXY 07/29/2021 VITAMIN D, 25-HYDROXY 07/29/2020 VITAMIN D, 25-HYDROXY 05/09/2019 VITAMIN D, 25-HYDROXY 04/06/2017 MYRIAD myRisk 04/06/2017 MMR (MEASLES, MUMPS, RUBELLA) IGG TITER 05/09/2019 Future Test Test Name Order Date Iron and TIBC-[id number] 01/31/2024 Ferritin-[id number] 01/31/2024 CBC With Differential/Platelet-725832 Comp. Metabolic Panel ([id number] 2023 Next Appt Details Provider Name:Valdo Nguyen , 08/14/2024 01:15:00 PM, [address] [place] [address], [place] [address], [place], [place], [phone], Insurance Providers Payer Name Payer Address Payer Phone Subscriber Number Group Number Insured Name Patient Relationship to Insured Coverage Start Date Coverage End Date MEDICARE [address] [employer] [phone] [id number] Heather Swift Self - patient is the insured [facility] [address] [place] [address] [id number] Heather Swift Self - patient is the insured Medical (General) History Medical History History ICD Code Asymptomatic varicose veins of bilateral lower extremities Disorder of iron metabolism, unspecified Vitamin D deficiency, unspecified Age-related osteoporosis without current pathological fracture Family history of malignant neoplasm of ovary Genetic carrier of other disease Hemangioma of skin and subcutaneous tiss ue (resolved 07/29/2020) Surgical History Surgery Date(Month/Year) varicose vein ablation 04/2016 Section stapedectomy 01/2021 Hospitalization History Reason Date(Month/Year)
--- OUTSIDE RECORDS SUMMARY | 2024-06-22 12:18 | XMS_ITS ---
Author Organization Valdo Azar MD Address [address] [phone] Care Team Providers Care Rn Tele Name Role Phone Valdo Azar Primary Care Provider REASON FOR VISIT clinical call Encounters Encounter Location Date Provider Diagnosis Valdo Azar MD 50 [facility] [address] [place] [phone] 11/09/2023 Valdo Azar Plan Of Treatment Next Appt Details Provider Name:Valdo Azar , 08/14/2024 01:15:00 PM, [address] [place] [address], [place] [address], [place], [place], [phone], Progress Notes * Heather SWIFT EDOB:1955 (68 yo F)Acc No.[id number]:11/09/2023 Patient:?Heather SWIFT :1955???Age:68 Y???Sex:Female Address:[address], [place], [address] * true * Date:? Generated for Printi wally/Stan/eTransmitting on:?06/22/2024 12:17 PM EST
== END 2024-06-22 11:11 | disposition home or self-care (01) ==
LOC: HO.BBR 11:10
PROVIDERS: PCP Internal Medicine; Visit Provider Internal Medicine Gastroenterology
DX: Z13.89 Encounter for screening for other disorder (principal)

== ENCOUNTER 2024-08-28 13:07 | Outpatient (REF) | payer MEDICARE, OTHER, SELFPAY ==
--- OUTSIDE RECORDS SUMMARY | 2024-08-28 15:08 | XMS_ITS | Patient Health Record ---
Author Organization Valdo Azar MD Address [address] [place] [phone] Care Team Providers Care Application Release Manager Name Role Phone Valdo Azar Primary Care Provider Allergies No Known Allergies Results Component Value Reference Range Notes Iron and TIBC-[id number] Reviewed date:08/24/2024 02:46:06 PM Interpretation: Performing Lab:[facility], Phone - [phone], Director - MDAmishay Notes/Report: Iron Bind.Cap.(TIBC) 312 250-450 ug/dL UIBC 255 118-369 ug/dL Iron 57 27-139 ug/dL Iron Saturation 18 15-55 % Ferritin-[id number] Reviewed date:08/24/2024 02:46:06 PM Interpretation: Performing Lab:[facility], [facility], Phone - [phone], Director - MDYoselindry Notes/Report: Ferritin 23 15-150 ng/mL Comp. Metabolic Panel ([id number] Reviewed date:08/24/2024 02:46:06 PM Interpretation: Performing Lab:[facility], j[facility], [place], Phone - [phone], Director - MDJodry Notes/Report: Glucose 85 70-99 mg/dL BUN 17 8-27 mg/dL Creatinine 0.75 0.57-1.00 mg/dL eGFR 87 >59 mL/min/1.73 BUN/Creatinine Ratio 23 12-28 Sodium 142 134-144 mmol/L Potassium 4.6 3.5-5.2 mmol/L Chloride 104 96-106 mmol/L Carbon Dioxide, Total 18 20-29 mmol/L Calcium 9.6 8.7-10.3 mg/dL Protein, Total 7.9 6.0-8.5 g/dL Albumin 4.9 3.9-4.9 g/dL Globulin, Total 3.0 1.5-4.5 g/dL Bilirubin, Total 0.3 0.0-1.2 mg/dL Alkaline Phosphatase 135 44-121 IU/L AST (SGOT) 24 0-40 IU/L ALT (SGPT) 19 0-32 IU/L LP+Non-HDL Cholesterol-46074 5 Reviewed date:08/24/2024 02:46:06 PM Interpretation: Performing Lab:[facility] [place], [address] [place] [address], Phone - [phone], Director - M[facility]aint [facility] System[facility] Notes/Report: Cholesterol, Total 177 100-199 mg/dL Triglycerides 91 0-149 mg/dL HDL Cholesterol 63 >39 mg/dL VLDL Cholesterol Kavon 17 5-40 mg/dL LDL Chol Calc (NIH) 97 0-99 mg/dL Non-HDL Cholesterol 114 0-129 mg/dL HCV Antibody-[id number] Reviewed date:08/24/2024 02:46:06 PM Interpretation: Performing Lab:[facility] [place], [address] [place] [address], Phone - [phone], Director - [facility] Notes/Report: Hep C Virus Ab Non Reactive Non Reactive HCV antibody alone does not differentiate between previously resolved infection and active infection. Equivocal and Reactive HCV antibody results should be followed up with an HCV RNA test to support the diagnosis of active HCV infection. Urinalysis, Complete-[id number] Reviewed date:08/24/2024 02:46:06 PM Interpretation: Performing Lab:[facility] [place], [address] [place] [address], Phone - [phone], Director - MDJodry Notes/Report: Specific [place] 1.019 1.005-1.030 pH 6.0 5.0-7.5 Urine-Color Yellow Yellow Appearance Clear Clear [...] seen /lpf Bacteria None seen None seen/Few CBC With Differential/Platel et-[id number] Reviewed date:08/24/2024 02:46:06 PM Interpretation: Performing Lab:[facility], [address] [facility], Phone - [phone], Director - Mandeep Notes/Report: WBC 8.6 3.4-10.8 x10E3/uL RBC 5.07 3.77-5.28 x10E6/uL Hemoglobin 14.5 11.1-15.9 g/dL Hematocrit 45.9 34.0-46.6 % MCV 91 79-97 fL MCH 28.6 26.6-33.0 pg MCHC 31.6 31.5-35.7 g/dL RDW 13.7 11.7-15.4 % Platelets 240 150-450 x10E3/uL Neutrophils 65 Not Estab. % Lymphs 26 Not Estab. % Monocytes 6 Not Estab. % Eos 2 Not Estab. % Basos 1 Not Estab. % Neutrophils (Absolute) 5.6 1.4-7.0 x10E3/uL Lymphs (Absolute) 2.2 0.7-3.1 x10E3/uL Monocytes(Absolute) 0.5 0.1-0.9 x10E3/uL Eos (Absolute) 0.1 0.0-0.4 x10E3/uL Baso (Absolute) 0.1 0.0-0.2 x10E3/uL Immature Granulocytes 0 Not Estab. % Immature Grans (Abs) 0.0 0.0-0.1 x10E3/uL Vitamin D, 81-Xxlbjbk-[id number] Reviewed date:08/24/2024 02:46:06 PM Interpretation: Performing Lab:[facility], [address] [place] [address], [place], Phone - [phone], Director - Mandeep Notes/Report: Vitamin D, 25-Hydroxy 38.5 30.0-100.0 ng/mL Vitamin D deficiency has been defined by the [place] of [employer] and an Endocrine Society practice guideline as a level of serum 25-OH vitamin D less than 20 ng/mL (1,2). The Endocrine Society went on to further define vitamin D insufficiency as a level between 21 and 29 ng/mL (2). 1. IOM ([place] of [employer]). 2010. Dietary reference intakes for calcium and D. [place]: The National Academies Press. 2. Gagandeep MF, Lisa SMITH, Nathan BAILEY, et al. Evaluation, treatment, and prevention of vitamin D deficiency: an Endocrine Society clinical practice guideline. JCEM. 2010; 96(8):1911-30. Reason For Referral No Information Medications Medication SIG (Take, Route, Frequency, Duration) Notes Start Date End Date Status Calcium Citrate-Vitamin D Not-Taking Vitamin D 2000 UNIT 1 capsule Orally Onc e a day Not-Taking Fosamax 70 MG 1 tablet Orally once a week for 30 day(s) Not-Taking Immunizations Vaccine Route Administration Date Status Comments Hep A, adult Unknown 07/18/2008 Administered Hep A, adult Unknown 06/07/2017 Administered Hep B, adult dosage, for intramuscular use Unknown 06/07/2017 Administered Hep B, adult dosage, for intramuscular use Unknown 09/22/2017 Administered Hep B, adult dosage, for intramuscular use IM Intramuscular 12/29/2017 Administered Mfd by Trendient Influenza Unknown 03/02/2018 Administered Influenza Unknown 01/31/2020 Administered patient awar e QUMCM-52-Tsnozt Vaccine Unknown 04/22/2020 Administered EBYML-75-Hmfgvv Vaccine Unknown 05/13/2020 Administered TGOCT-32-Wcrqdw Vaccine Unknown 02/17/2021 Administered COVID-19 Pfizer BiValent Booster Unknown 01/22/2022 Administered COVID 19 (Pfizer 12+) Unknown 08/28/2021 Administered *Tdap IM Intramuscular 04/19/2018 Administered *PREVNAR 20 Unknown 06/13/2023 Administered Influenza, seasonal, injectable, preservative free, 4 yrs [...] Status Risk Notes Problem Vitamin D deficiency (23413483) Vitamin D deficiency, unspecified (E55.9) Active confirmed Problem Mixed hyperlipidemia (741941698) Mixed hyperlipidemia (E78.2) Active confirmed Problem Hereditary hemochromatosis (94295005) Hereditary hemochromatosis (E83.110) Active confirmed Problem Hypocalcemia (1093357) Hypocalcemia (E83.51) Active confirmed Problem Age-related osteoporosis (511625905) Age-related osteoporosis without current pathological fracture (M81.0) Active confirmed Problem Family history of malignant neoplasm of ovary (628260592) Family history of malignant neoplasm of ovary (Z80.41) Active confirmed Problem 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 Problem Hemangioma of skin and subcutaneous tissue (933471370) Hemangioma of skin and subcutaneous tissue (D18.01) Problem resolved confirmed Vital Signs Heart Rate 88 /min 08/14/2024 Temperature 97.1 degrees Fahrenheit 08/14/2024 Blood pressure diastolic 70 mm Hg 08/14/2024 Oximetry 99 % 08/14/2024 Height 5 ft in 08/14/2024 Blood pressure systolic 136 mm Hg 08/14/2024 Weight 121 lbs 08/14/2024 BMI 23.63 kg/m2 08/14/2024 Encounters Encounter Location Date Provider Diagnosis Valdo Azar MD [address] [phone] 08/14/2024 Valdo Azar Hereditary hemochromatosis E83.110 ; Age-related osteoporosis without current pathological fracture M81.0 ; Family history of malignant neoplasm of ovary Z80.41 ; Mixed hyperlipidemia E78.2 ; Vitamin D deficiency, unspecified E55.9 ; Encounter for general adult medical examination without abnormal findings Z00.00 ; Encounter for screening for malignant neoplasm of colon Z12.11 ; Encounter for screening for cardiovascular disorders Z13.6 ; Encounter for immunization Z23 ; Encounter for antibody response examination Z01.84 ; Encounter for screening for other viral diseases Z11.59 ; Encounter for screening mammogram for malignant neoplasm of breast Z12.31 and Encounter for screening for osteoporosis Z13.820 Valdo Azar MD [address] [id number] 11/09/2023 Valdo Azar MD [address] [id number] 08/17/2024 Valdo Azar Assessments Encounter Date Diagnosis (ICD Code) Assessment Notes Treatment Notes Treatment Clinical Notes Section Notes 08/14/2024 Hereditary hemochromatosis (ICD-10 - E83.110) Stable with periodic phlebotomy. Recheck labs. She is getting phlebotomy every 2 months. 08/14/2024 Age-related osteoporosis without current pathological fracture (ICD-10 - M81.0) She has been on therapy for about 5 years. Can recheck bone density and see if she has progressive osteoporosis then she may need different medical therapy. 08/14/2024 Family history of malignant neoplasm of ovary (ICD-10 - Z80.41) Stable with periodic follow-up with gynecology. 08/14/2024 Mixed hyperlipidemia (ICD-10 - E78.2) Stable on prior labs as reviewed. Recheck status 08/14/2024 Vitamin D deficiency, unspecified (ICD-10 - E55.9) Stable on prior labs as reviewed. Recheck status and would consider vitamin D supplementation for goal level of 30+ and if possible 50+ 08/14/2024 Encounter for general adult medical examination without abnormal findings (ICD-10 - Z00.00) General healthcare up-to-date. Check routine labs. Await completion of healthcare proxy and multiform. She already has a package to complete. Otherwise her blood pressure is elevated and this may be progressive. Recommend validation with a home validated blood pressure cuff to see if this is true hypertension 08/14/2024 Encounter for screening for malignant neoplasm of colon (ICD-10 - Z12.11) Up-to-date on colon cancer screening 08/14/2024 Encounter for screening for cardiovascular disorders (ICD-10 - Z13.6) Blood pressure is stable. Can check for comorbidity of hyperlipidemia and hyperglycemia to further assess risk. 08/14/2024 Encounter for immunization (ICD-10 - Z23) Vaccines up to date 08/14/2024 Encounter for antibody response examination (ICD-10 - Z01.84) Titers have been checked in the past and there is immunity to rubeola 08/14/2024 Encounter for screening for other viral diseases (ICD-10 - Z11.59) Can screen for hepatitis C as per general recommendation 08/14/2024 Encounter for screening mammogram for malignant neoplasm of breast (ICD-10 - Z12.31) Up-to-date on breast cancer screening 08/14/2024 Encounter for screening for osteoporosis (ICD-10 - Z13.820) Up-to-date on osteoporosis screening 08/14/2024 Other This note was created with voice dictation recognition software and may contain errors of grammar and syntax. Also labs were reviewed with patient. Plan Of Treatment Pending Test Test Name Order Date COMPREHENSIVE METABOLIC PANEL 12/10/2022 MAGNESIUM 12/10/2022 PTH, INTACT 12/10/2022 CBC 08/02/2022 CBC 07/29/2021 CBC 07/29/2020 CBC 05/09/2019 CBC 04/06/2017 COMPREHENSIVE METABOLIC PANEL 04/06/2017 COMPREHENSIVE METABOLIC PANEL 05/09/2019 COMPREHENSIVE METABOLIC PANEL 07/29/2020 COMPREHENSIVE METABOLIC PANEL 07/29/2021 COMPREHENSIVE METABOLIC PANEL 08/02/2022 FERRITIN 08/02/2022 FERRITIN 07/29/2021 FERRITIN 07/29/2020 FERRITIN 05/09/2019 FERRITIN 04/06/2017 HEPATITIS C VIRUS SCREEN 08/02/2022 LIPID PROFILE 08/02/2022 LIPID PROFILE 05/09/2019 LIPID PROFILE 07/29/2020 LIPID PROFILE 07/29/2021 LIPID PROFILE 04/06/2017 TOTAL IRON BINDING CAPACITY 07/29/2021 URINALYSIS 07/29/2021 URINALYSIS 07/29/2020 URINALYSIS 08/02/2022 URINALYSIS 05/09/2019 URINALYSIS 04/06/2017 VITAMIN D, 25-HYDROXY 04/06/2017 VITAMIN D, 25-HYDROXY 07/29/2021 VITAMIN D, 25-HYDROXY 08/02/2022 VITAMIN D, 25-HYDROXY 05/09/2019 VITAMIN D, 25-HYDROXY 07/29/2020 MYRIAD myRisk 04/06/2017 MMR (MEASLES, MUMPS, RUBELLA) IGG TITER 05/09/2019 BD BONE DENSITY DXA AXIAL W VERTEBRAL FX ASMT 08/14/2024 MG MAMMO DIGITAL SCREENING BILAT 025 Future Test Test Name Order Date Iron and TIBC-[id number] 01/31/2024 Ferritin-[id number] 01/31/2024 CBC With Differential/Platelet-[id number] Comp. Metabolic Panel ([id number] 2023 Next Appt Details Provider Name:Valdo Doe , 11/06/2024 03:45:00 PM, [address] [place] [address], [phone], Provider Name:Valdo Azar , 08/22/2025 01:00:00 PM, [address] [place] [address], [phone], Insurance Providers Payer Name Payer Address Payer Phone Subscriber Number Group Number Insured Name Patient Relationship to Insured Coverage Start Date Coverage End Date MEDICARE [address] [place] [phone] [id number] Jeniffer Heather Self - patient is the insured [facility] [address] [place] [address] [phone] [id number] MattHeather mccollum Self - patient is the insured Medical [...]
--- OUTSIDE RECORDS SUMMARY | 2024-08-28 15:08 | XMS_ITS | Clinical Summary ---
Author Organization [facility] Address [address] [place] [address] Phone Care Team Providers Care Business Services Representative Name Role Phone Unavailable Primary Care Provider Unavailabl e Social History Tobacco Use Types Packs/Day Years Used Date Smoking Tobacco: Never Assessed Comments Unknown Sex and Gender Information Value Date Recorded Sex Assigned at Not on file Legal Sex Female 5:45 PM EST Gender Identity Not on file Sexual Orientation Not on file Plan of Treatment Upcoming Encounters Date Type Department Care Team (Late st Contact Info) Description 10/02/2024 8:00 AM EDT [facility]ointment [facility] [address] [phone] 10/02/2024 8:[address] [facility] Bone Density [address] [place] [phone] Health Maintenance Due Date Last Done Comments DTaP,Tdap,and Td Vaccines (1 - Tdap) 1976 Pneumococcal Vaccine: 50+ Years (1 of 1 - PCV) 08/08/2007 Zoster Vaccines (1 of 2) 08/08/2007 Colorectal Cancer Screening: Colonoscopy 04/03/2022 Depression Screening 04/03/2022 Hepatitis C Screening 04/03/2022 Medicare Annual Wellness Visit 04/03/2022 Social Influencers of Health Screening 04/03/2022 Falls Risk Assessment 2022 COVID-19 Vaccine ( season) 2024 Influenza Vaccine (Season Ended) 2024 Breast Cancer Screening 08/17/2025 08/18/19 24, 08/05/2022, 07/29/2021, Additional history exists Osteoporosis Screening (Bone Density Screening) 08/03/2032 08/03/2022, 07/23/2020, 06/30/2018 RSV Immunization Adult Patients (1 - 1-dose 75+ series) 2032 HIB Vaccines Aged Out No longer eligi ble based on patient's age to complete this topic HPV Vaccines Aged Out No longer eligi ble based on patient's age to complete this topic Hepatitis A Vaccines Aged Out No long er eligible based on patient's age to complete this topic Hepatitis B Vaccines Aged Out No long er eligible based on patient's age to complete this topic IPV Vaccines Aged Out No longer eligi ble based on patient's age to complete this topic MMR Vaccines Aged Out No longer eligi ble based on patient's age to complete this topic Meningococcal ACWY Vaccine Aged Out N o longer eligible based on patient's age to complete this topic Meningococcal B Vaccine Aged Out No l onger eligible based on patient's age to complete this topic RSV Immunization Patients Under 20 months Aged Out No longer eligible based on patient's age to complete this topic Varicella Vaccines Aged Out No longer eligible based on patient's age to complete this topic Procedures Procedure Name Priority Date/Time Associated Diagnosis Comments EXTERNAL CLINICAL LAB 06/25/2024 [facility] SCREENING DIGITAL Routine 08/18/2023 9:03 AM EDT Encounter for screening mammogram for malignant neoplasm of breast [facility] DEXA AXIAL SKELETON Routine 08/03/2022 8:47 AM EDT Age-related osteoporosis without current pathological fracture from Last 3 Months or Most Recently Relevant to Health Maintenance Results * External clinical lab (06/25/2024) us Provider [facility] BLOOD ORDERABLES Fin al Result * [facility] SCREENING DIGITAL (08/18/2023 9:03 AM EDT) Anatomical Region Laterality Modality Mammography 08/17/2023 1:34 PM EDT Narrative 08/18/2023 9:03 AM EDT [facility] Diagnostic Imaging Department [address] [place], [place] [address] Patient: ??JOSE SWIFT ?/Age/Sex: 1955 - 68 - F Unit#: ??[id number] ? Location/Status: ??SPDIMAM/REG CLI ? Mnemonic/Ordering Site: ??DIGSC/SPMAM Ordering Physician: ??VALDO NGUYEN MD [facility] Screening Digital - 08/17/23 - 1401 Report Status:Signed EXAM: [facility] Screening Digital EXAM DATE AND TIME: 08/17/2023 2:01 PM HISTORY: ??Annual screening COMPARISON: ??Multiple exams dating back to 2002 TECHNIQUE: Bilateral digital breast tomosynthesis was performed in the CC and MLO projections. Computer aided detection with Classting 3D 3.1 was employed. TISSUE DENSITY: b. There are scattered areas of fibroglandular density. FINDINGS: No suspicious masses, grouped microcalcifications, or areas of architectural distortion are seen. The skin and vascularity are unremarkable. IMPRESSION: Stable mammographic appearance of the breasts. ??No evidence of malignancy is seen. A negative mammogram in the presence of a clinically suspicious palpable abnormality does not preclude the possibility of malignancy or alter the indications for biopsy. BI-RADS: ??Category 1: Negative RECOMMENDATION(S): 1: Routine screening mammogram BILATERAL in 1 year. 3341F, 7025F Dictating Physician: ??PENNY MAN MD Electronically Signed by: ??PENNY MAN MD Dic Date/Time: ??08/18/23 09 Sign date/Time: ??08/18/23 0903 Procedure Note Penny Man MD - 12/19/2023 [facility] Diagnostic Imaging Department [address] [place] [id number] Patient: JOSE SWIFT E /Age/Sex: 1955 - 68 - F Unit#: [id number] Location/Status: [facility]IMA/REG CLI Mnemonic/Ordering Site: [facility] Ordering Physician: VALDO NGUYEN MD [facility] Screening Digital - 08/17/23 - 1401 Report Status:Signed EXAM: [facility] Screening Digital EXAM DATE AND TIME: 08/17/2023 2:01 PM HISTORY: Annual screening COMPARISON: Multiple exams dating back to 2002 TECHNIQUE: Bilateral digital breast tomosynthesis was performed in the CCand MLO projections. Computer aided detection with Classting 3D 3.1was employed. TISSUE DENSITY: b. There are scattered areas of fibroglandular density. FINDINGS: No suspicious masses, grouped microcalcifications, or areas ofarchitectural distortion are seen. The skin and vascularity are unremarkable. IMPRESSION: Stable mammographic appearance of the breasts. No evidence of malignancyis seen. A negative mammogram in the presence of a clinically suspicious palpable abnormality does not preclude the possibility of malignancy or alter the indications for biopsy. BI-RADS: Category 1: Negative RECOMMENDATION(S): 1: Routine screening mammogram BILATERAL in 1 year. 3341F, 7037F Dictating Physician: PENNY MAN MD Electronically Signed by: PENNY MAN MD Dic Date/Time: 08/18/23901 Sign date/Time: 08/18/23902 us Valdo Nguyen MD IM BI PROCEDURES Final Result * [facility] DEXA AXIAL SKELETON (08/03/2022 8:47 AM EDT) Anatomical Region Laterality Modality Mammography 08/03/2022 7:28 AM EDT Narrative 08/03/2022 8:47 AM EDT [facility] Diagnostic Imaging Department [address] [place], [place] [address] Patient: ??JOSE SWIFT ?/Age/Sex: 1955 - 66 - F Unit#: ??[id number] ? Location/Status: ??SPDIMAM/REG CLI ? Mnemonic/Ordering Site: ??MAMDEXAAX/SPMAM Ordering Physician: ??CATHLEEN WALKER MD [facility] Dexa Axial Skeleton - 08/03/22 - HISTORY: ??The patient is a 66-year-old postmenopausal female with clinical concern for metabolic bone disease. FINDINGS: ??Dual energy x-ray absorptiometry of the lumbar spine and femurs is performed. The mean bone mineral density at L1-L4 is 0.980 gm/cm2 which is 83% of that of young normals and 104% of that of age matched controls. This yields a T-score of -1.7 and a Z-score of 0.3 which is diagnostic of osteopenia. The mean bone mineral density of the femurs bilaterally is 0.773 gm/cm2 which is 77% of that of young normals and 94% of that of age matched controls. ??This yields a T-score of -1.9 and a Z-score of -0.4 which is diagnostic of osteopenia. ??However, the T-score of the right femoral neck is -2.7 and that of the left femoral neck is -2.6 which is diagnostic of osteoporosis. IMPRESSION: 1. Osteoporosis. ??There has been a decrease of 0.2% in bone mineral density in the lumbar spine since the prior examination of 07/23/2020. ??There has been a decrease of 2.2% in bone mineral density in the right femur and a decrease of 1.2% in bone mineral density in the left femur. 2. FRAX analysis yields a 10-year probability of major osteoporotic fracture of 24.2% and a 10-year probability of hip fracture of 3.6%. Code 58384 Dictating Physician: ??GOLDIE MARIE MD Electronically Signed by: ??GOLDIE MARIE MD Dic Date/Time: ??08/03/2246 Sign date/Time: ??08/03/22 0847 Procedure Note Goldie Marie MD - 06/03/2023 [facility] Diagnostic Imaging Department [address] [place], [place] [address] Patient: LILLIJOSE Norris D.O.B./Age/Sex: 1955 - 66 - F Unit#: [id number] Location/Status: SPDIMAM/REG CLI Mnemonic/[facility]ing [facility] Ordering Physician: CATHLEEN WALKER MD [facility] Dexa Axial Skeleton - 08/03/22 - HISTORY: The patient is a 66-year-old postmenopausal female withclinical concern for metabolic bone disease. FINDINGS: Dual energy x-ray absorptiometry of the lumbar spine and femursis performed. The mean bone mineral density at L1-L4 is 0.980 gm/cm2 which is83% of that of young normals and 104% of that of age matched controls. Thisyields a T-score of -1.7 and a Z-score of 0.3 which is diagnostic of osteopenia. The mean bone mineral density of the femurs bilaterally is 0.773 gm/da5cvrue is 77% of that of young normals and 94% of that of age matched controls.This yields a T-score of -1.9 and a Z-score of -0.4 which is diagnostic of osteopenia. However, the T-score of the right femoral neck is -2.7 andthat of the left femoral neck is -2.6 which is diagnostic of osteoporosis. IMPRESSION: 1. Osteoporosis. There has been a decrease of 0.2% in bone mineraldensity in the lumbar spine since the prior examination of 07/23/2020. There has joana decrease of 2.2% in bone mineral density in the right femur and a decreaseof 1.2% in bone mineral density in the left femur. 2. FRAX analysis yields a 10-year probability of major osteoporoticfracture of 24.2% and a 10-year probability of hip fracture of 3.6%. Code 17162 Dictating Physician: GOLDIE MARIE MD Electronically Signed by: GOLDIE MARIE MD Dic Date/Time: 08/03/2246 Sign date/Time: 08/03/22846 Cathleen Walker MD IMG BI PROCEDURES Final Result from Last 3 Months or Most Recently Relevant [place] [id number] MEDICARE [facility]
--- OUTSIDE RECORDS SUMMARY | 2024-08-28 15:08 | XMS_ITS ---
Author Organization Valdo Azar MD Address [address] [phone] Care Team Providers Care Cereal Maker Name Role Phone Valdo Azar Primary Care Provider REASON FOR VISIT DI modification Encounters Encounter Location Date Provider Diagnosis Valdo Azar MD [address] [facility] [address] [place] [phone] 08/17/2024 Valdo Azar Plan Of Treatment Next Appt Details Provider Name:Valdo Azar , 11/06/2024 03:45:00 PM, [address] [place] [address], [phone], Provider Name:Valdo Azar , 08/22/2025 01:00:00 PM, [address] [place] [address], [phone], Progress Notes * Heather SWIFT EDOB:1955 (69 yo F)Acc No.[id number]:08/17/2024 Patient:?Heather SWIFT E :1955???Age:69 Y???Sex:Female Address:[address], [place], [address] * true * Date:? Generated for Printi ng/Faxing/eTransmitting on:?08/28/2024 03:08 PM EDT
--- OUTSIDE RECORDS SUMMARY | 2024-08-28 15:09 | XMS_ITS ---
Author Organization Valdo Azar MD Address 50 [facility] [address] [place] [phone] Care Team Providers Care Hospitality House Supervisor Name Role Phone Valdo Azar Primary Care Provider [phone] Allergies No Known Allergies Results Component Value Reference Range Notes Iron and TIBC-[id number] Reviewed date:08/24/2024 02:46:06 PM Interpretation: Performing Lab:[facility] [place], [address] [facility], Phone - [phone], Director - Mandeep Notes/Report: Iron Bind.Cap.(TIBC) 312 250-450 ug/dL UIBC 255 118-369 ug/dL Iron 57 27-139 ug/dL Iron Saturation 18 15-55 % Urinalysis, Complete-[id number] Reviewed date:08/24/2024 02:46:06 PM Interpretation: Performing Lab:[facility] [place], [address] [facility], Phone - [phone], Director - Dly Notes/Report: Specific Wilmot 1.019 1.005-1.030 pH 6.0 5.0-7.5 Urine-Color Yellow [...] seen /lpf Bacteria None seen None seen/Few Ferritin-[id number] Reviewed date:08/24/2024 02:46:06 PM Interpretation: [facility]forming [facility], [address] [place] [address], Phone - [phone], Director - Mandeep Notes/Report: Ferritin 23 15-150 ng/mL CBC With Differential/Platel et-[id number] Reviewed date:08/24/2024 02:46:06 PM Interpretation: Performing Lab:[facility] [place], [address] [place] [address], Phone - [phone], Director - Dly Notes/Report: WBC 8.6 3.4-10.8 x10E3/uL RBC 5.07 [...] Grans (Abs) 0.0 0.0-0.1 x10E3/uL Vitamin D, 06-Wejmsli-[id number] Reviewed date:08/24/2024 02:46:06 PM Interpretation: Performing [facility], [address] [place] [address], Phone - [phone], Director - Dly Notes/Report: Vitamin D, 25-Hydroxy 38.5 30.0-100.0 ng/mL Vitamin D deficiency has been defined by the [place] [employer] and an Endocrine Society practice guideline as a level of serum 25-OH vitamin D less than 20 ng/mL (1,2). The Endocrine Society went on to further define vitamin D insufficiency as a level between 21 and 29 ng/mL (2). 1. IOM ([place] [employer]). 2010. Dietary reference intakes for calcium and D. [place]: The National Academies Press. 2. Gagandeep MF, Lisa NC, Nathan BAILEY, et al. Evaluation, treatment, and prevention of vitamin D deficiency: an Endocrine Society clinical practice guideline. JCEM. 2010; 96(7):1911-30. Comp. Metabolic Panel (14)-[id number] Reviewed date:08/24/2024 02:46:06 PM Interpretation: Performing Lab:[facility], [address] [facility], Phone - [phone], Director - MDJodry Notes/Report: Glucose 85 70-99 [...] IU/L ALT (SGPT) 19 0-32 IU/L LP+Non-HDL Cholesterol-[id number] 5 Reviewed date:08/24/2024 02:46:06 PM Interpretation: Performing Lab:[facility], [address] [facility], [place], Phone - [phone], Director - MDJodry Notes/Report: Cholesterol, Total 177 100-199 mg/dL Triglycerides 91 0-149 mg/dL HDL Cholesterol 63 >39 mg/dL VLDL Cholesterol Kavon 17 5-40 mg/dL LDL Chol Calc (NIH) 97 0-99 mg/dL Non-HDL Cholesterol 114 0-129 mg/dL HCV Antibody-[id number] Reviewed date:08/24/2024 02:46:06 PM Interpretation: Performing Lab:[facility], [address], [place], Phone - [phone], Director - Mandeep Notes/Report: Hep C Virus Ab Non Reactive Non Reactive HCV antibody alone does not differentiate between previously resolved infection and active infection. Equivocal and Reactive HCV antibody results should be followed up with an HCV RNA test to support the diagnosis of active HCV infection. REASON FOR VISIT Annual Wellness Medications Medication SIG (Take, Route, Frequency, Duration) Notes Start Date End Date Status Calcium Citrate-Vitamin D Not-Taking Vitamin D 2000 UNIT 1 capsule Orally Onc e a day Not-Taking Fosamax 70 MG 1 tablet Orally once a week for 30 day(s) Not-Taking Social History Tobacco Use: Social History [...] (Standard) Question Answer Notes Tobacco use: Nonsmoker Vital Signs Temperature 97.1 degrees Fahrenheit 08/15/19 25 Blood pressure systolic 136 mm Hg 08/15/19 25 Blood pressure diastolic 70 mm Hg 025 Heart Rate 88 /min 08/14/2024 Height 5 ft in 08/14/2024 Weight 121 lbs 08/14/2024 BMI 23.63 kg/m2 08/14/2024 Oximetry 99 % 08/14/2024 Encounters Encounter Location Date Provider Diagnosis Valdo Azar MD [address] [phone] 08/14/2024 Valdo Azar Hereditary hemochromatosis E83.110 ; [...] and Encounter for screening for osteoporosis Z13.820 Assessments Encounter Date Diagnosis (ICD Code) Assessment [...] Treatment Pending Test Test Name Order Date BD BONE DENSITY DXA AXIAL W VERTEBRAL FX ASMT 08/14/2024 MG MAMMO DIGITAL SCREENING BILAT 025 Next Appt Details Follow Up: 1 Year, Reason: A nnual Provider Name:Valdo Azar , 11/06/2024 03:45:00 PM, [address] [place] [address], [phone], Provider Name:Valdo Azar , 08/22/2025 01:00:00 PM, [address] [place] [address], [phone], Progress Notes * Heather SWIFT EDOB:1955 (69 yo F)Acc No.[id number]:08/14/2024 Progress Note Patient:?Heather SWIFT Provider:?Valdo Azar MD :1955???Age:69 Y???Sex:Female D ate:08/14/2024 Address:[place] [address], [id number] Subjective: * Chief Complaints: * ???Annual Wellness [...] Screening?-?PHQ2 done ?Vision Screening?-?Yes, patient sees regular certified ethical hacker or linux system engineer ?Hearing Screening?-?Yes, concerned about hearing loss ?Fall Risk and Home Safety?Get Up and [...] Section stapedectomy 01/2021 * Ocular Surgical History:? Ocular Surgical History revi ewed with the patient. * Hospitalization/Major Diagno stic Procedure:?Denies Past Hospitalization * Family History:?Spouse: barb brambila 71 yrs, Healthy.?Father: 95 yrs, Pancreatic cancer at 78.?Mother: alive 101 yrs, HealthyHeart attack 2022.?Daughter(s): alive 37 yrs, Healthy.?Children: alive 34 yrs, Healthy.?Maternal aunt: ovarian cancer.?3 brother(s) , [...] a week (3 points) ?Points?3 ?Interpretation?Positive * Medications:?Not-Taking/PRNC alcium Citrate-Vitamin D Vitamin D 2000 UNIT Capsule 1 capsule Orally Once a day Fosamax 70 MG Tablet 1 tablet Orally once a week Medication List reviewed and reconciled with the patientNot-Taking/PRN Calcium Citrate- Vitamin D Not-Taking/PRN Vitamin D 2000 UNIT Capsule 1 capsule Orally Once a day Not- Taking/PRN Fosamax 70 MG Tablet 1 tablet Orally once a week Medication List reviewed and reconciled with the patient * Allergies:?N.K.D.A.no[Allerg ies Verified] Objective: * Vitals:?Temp:97.1F, HR:88/mi n, BP:Sitting Right Arm: 136/70mm Hg, Wt:121lbs, BMI:23.63Index, Ht:5 ft, Oxygen sat %:99%. Past Vitals:* 08/09/2023 Temp:96.4F, HR:78/min, BP:Si tting Right Arm: 124/56mm Hg, Wt:118.8lbs, BMI:23.20Index, Ht:5 ft, Oxygen sat %:98% * 08/02/2022 Temp:97.7F, HR:68/min, BP:Si tting Right Arm:124/74mm Hg, Wt:117lbs, BMI:22.85Index, Ht:5 ft, Oxygen sat %:97% * ???Past Orders: ???Lab:CBC With Differential /Platelet-[id number] (Order Date - 08/09/2023) (Collection Date & Time - 08/09/2023 01:39 PM) ? Value Reference Range ?WBC 7.8 3.4-10.8 - x10E3/uL ?RBC 4.37 3.77-5.28 - x10E6/uL ?Hemoglobin 12.8 11.1-15.9 - g/dL ?Hematocrit 40.8 34.0-46.6 - % ?MCV 93 79-97 - fL ?MCH 29.3 26.6-33.0 - pg ?MCHC 31.4 L 31.5-35.7 - g/d L ?RDW 13.0 11.7-15.4 - % ?Platelets 256 150-450 - x10E3/uL ?Neutrophils 60 Not Esta b. - % ?Lymphs 33 Not Estab. - % ?Monocytes 5 Not Estab. - % ?Eos 1 Not Estab. - % ?Basos 1 Not Estab. - % ?Neutrophils (Absolute) 4.7 1.4-7.0 - x10E3/uL ?Lymphs (Absolute) 2.6 0. 7-3.1 - x10E3/uL ?Monocytes(Absolute) 0.4 0.1-0.9 - x10E3/uL ?Eos (Absolute) 0.1 0.0-0 .4 - x10E3/uL ?Baso (Absolute) 0.1 0.0- 0.2 - x10E3/uL ?Immature Granulocytes 0 Not Estab. - % ?Immature Grans (Abs) 0.0 0.0-0.1 - x10E3/uL ???Lab:Comp. Metabolic Panel ([id number] (Order Date - 08/09/2023) (Collection Date & Time - 08/09/2023 01:39 PM) ? Value Reference Range ?Glucose 80 70-99 - mg/d L ?BUN 19 8-27 - mg/dL ?Creatinine 0.76 0.57-1.00 - mg/dL ?BUN/Creatinine Ratio 25 12-28 - ?Sodium 142 134-144 - mmo l/L ?Potassium 3.9 3.5-5.2 - mmol/L ?Chloride 103 96-106 - mm ol/L ?Carbon Dioxide, Total 24 20-29 - mmol/L ?Calcium 9.7 8.7-10.3 - m g/dL ?Protein, Total 7.4 6.0-8 .5 - g/dL ?Albumin 4.4 3.9-4.9 - g/ dL ?Globulin, Total 3.0 1.5- 4.5 - g/dL ?A/G Ratio 1.5 1.2-2.2 - ?Bilirubin, Total 0.2 0.0 -1.2 - mg/dL ?Alkaline Phosphatase 98 44-121 - IU/L ?AST (SGOT) 22 0-40 - IU /L ?ALT (SGPT) 15 0-32 - IU /L ?eGFR 86 >59 - mL/min/1. 73 ???Lab:LP+Non-HDL Cholestero l-[id number] (Order Date - 08/09/2023) (Collection Date & Time - 08/09/2023 01:39 PM) ? Value Reference Range ?Cholesterol, Total 184 1 00-199 - mg/dL ?Triglycerides 157 H 0-149 - mg/dL ?HDL Cholesterol 68 >39 - mg/dL ?VLDL Cholesterol Kavon 27 5-40 - mg/dL ?LDL Chol Calc ([facility]) 89 0-99 - mg/dL ?Non-HDL Cholesterol 116 0-129 - mg/dL ???Lab:Iron and TIBC-[id number] (Order Date - 08/09/2023) (Collection Date & Time - 08/09/2023 01:39 PM) ? Value Reference Range ?Iron Bind.Cap.(TIBC) 302 250-450 - ug/dL ?UIBC 259 118-369 - ug/dL ?Iron 43 27-139 - ug/dL ?Iron Saturation 14 L 15-5 5 - % ???Lab:Ferritin-[id number] (Orde r Date - 08/09/2023) (Collection Date & Time - 08/09/2023 01:39 PM) ? Value Reference Range ?Ferritin 14 L 15-150 - ng /mL ???Lab:Vitamin D, 25-Hydroxy -[id number] (Order Date - 08/09/2023) (Collection Date & Time - 08/09/2023 01:39 PM) ? Value Reference Range ?Vitamin D, 25-Hydroxy 38.5 30.0-100.0 - ng/mL ???Lab:Urinalysis, Complete- [id number] (Order Date - 08/09/2023) (Collection Date & Time - 08/09/2023 01:39 PM) ? Value Reference Range ?Specific Wilmot 1.015 1.0 05-1.030 - ?pH 6.5 5.0-7.5 - ?Urine-Color Yellow Yellow - ?Appearance Clear Clear - ?WBC Esterase Negative Negativ e - ?Protein Negative Negative/Tra ce - ?Glucose Negative Negative - ?Ketones Negative Negative - ?Occult Blood Negative Negativ e - ?Bilirubin Negative Negative - ?Urobilinogen,Semi-Qn 0.2 0.2-1.0 - mg/dL ?Nitrite, Urine Negative Negat keith - ?WBC None seen 0 - 5 - /hpf ?RBC 0-2 0 - 2 - /hpf ?Epithelial Cells (non renal) None seen 0 - 10 - /hpf ?Casts None seen None seen - /l pf ?Bacteria None seen None seen/F ew - ?Microscopic Examination See below: - ???Lab:MEASLES PROFILE (Orde r Date - 06/05/2019) (Collection Date & Time - 06/05/2019 07:34 AM) ? Value Reference Range ?MEASLES IGG QUANT > 300.0 >= 16.5 - AU/mL ?MEASLES IGG POSITIVE POSITIVE - ???Lab:HCV Antibody-[id number] ( Order Date - 08/09/2023) (Collection Date & Time - 08/09/2023 01:39 PM) ? Value Reference Range ?Hep C Virus Ab Non Reactive Non R eactive - * Examination: ???General Examination: ?GENERAL APPEARANCE:?Age appropriate, [...] Assessment: * Assessment: 1.?Hereditary hemochromatosi s - E83.110???2.?Age-related osteoporosis without current pathological fracture - M81.0???3.?Family history of malignant neoplasm of ovary - Z80.41???4.?Mixed hyperlipidemia - E78.2???5.?Vitamin D deficiency, unspecified - E55.9???6.?Encounter for general adult medical examination without abnormal findings - Z00.00 (Primary)???7.?Encounter for screening for malignant neoplasm of colon - Z12.11???8.?Encounter for screening for cardiovascular disorders - Z13.6???9.?Encounter for immunization - Z23???10.?Encounter for antibody response examination - Z01.84???11.?Encounter for screening for other viral diseases - Z11.59???12.?Encounter for screening mammogram for malignant neoplasm of breast - Z12.31???13.?Encounter for screening for osteoporosis - Z13.820??? Plan: * Treatment: ? Value Reference Range ?Specific Wilmot 1.019 1.005- 1.030 - * ?pH 6.0 5.0-7.5 - * ?Urine-Color Yellow Yellow - [...] lab was reviewed by Nicko Azar on 08/24/2024 at 14:46 PM EDT ?LAB: CBC With Differential/Platelet-[id number] (Collection Date & Time - 08/14/2024 02:02 PM)* ? Value Reference Range ?WBC 8.6 3.4-10.8 - x10E 3/uL * ?RBC 5.07 3.77-5.28 - x10 E6/uL * ?Hemoglobin 14.5 11.1-15.9 - g/dL * ?Hematocrit 45.9 34.0-46.6 - % * ?MCV 91 79-97 - fL * ?MCH 28.6 26.6-33.0 - pg * ?MCHC 31.6 31.5-35.7 - g/d L * ?RDW 13.7 11.7-15.4 - % * ?Platelets 240 150-450 - x10 E3/uL * ?Neutrophils 65 Not Estab. - % * ?Lymphs 26 Not Estab. - % * ?Monocytes 6 Not Estab. - % * ?Eos 2 Not Estab. - % * ?Basos 1 Not Estab. - % * ?Neutrophils (Absolute) 5.6 1.4-7.0 - x10E3/uL * ?Lymphs (Absolute) 2.2 0.7-3 .1 - x10E3/uL * ?Monocytes(Absolute) 0.5 0.1 -0.9 - x10E3/uL * ?Eos (Absolute) 0.1 0.0-0.4 - x10E3/uL * ?Baso (Absolute) 0.1 0.0-0.2 - x10E3/uL * ?Immature Granulocytes 0 N ot Estab. - % * ?Immature Grans (Abs) 0.0 0. 0-0.1 - x10E3/uL * This lab was reviewed by Nicko Azar on 08/24/2024 at 14:46 PM EDT ?LAB: Comp. Metabolic Panel [id number] (Collection Date & Time - 08/14/2024 02:02 PM)* ? Value Reference Range ?Glucose 85 70-99 - mg/dL * ?BUN 17 8-27 - mg/dL * ?Creatinine 0.75 0.57-1.00 - mg/dL * ?BUN/Creatinine Ratio 23 12 -28 - * ?Sodium 142 134-144 - mmol/ L * ?Potassium 4.6 3.5-5.2 - mmo l/L * ?Chloride 104 96-106 - mmol/ L * ?Carbon Dioxide, Total 18 L 2 0-29 - mmol/L * ?Calcium 9.6 8.7-10.3 - mg/d L * ?Protein, Total 7.9 6.0-8.5 - g/dL * ?Albumin 4.9 3.9-4.9 - g/dL * ?Globulin, Total 3.0 1.5-4.5 - g/dL * ?Bilirubin, Total 0.3 0.0-1. 2 - mg/dL * ?Alkaline Phosphatase 135 H 44 -121 - IU/L * ?AST (SGOT) 24 0-40 - IU/L * ?ALT (SGPT) 19 0-32 - IU/L * ?eGFR 87 >59 - mL/min/1. 73 * This lab was reviewed by Nicko Azar on 08/24/2024 at 14:46 PM EDT Clinical Notes: General healthcare up-to-date. Check routine labs. Await completion of healthcare proxy and multiform. She already has a package to complete. Otherwise her blood pressure is elevated and this may be progressive. Recommend validation with a home validated blood pressure cuff to see if this is true hypertension??2.?Hereditary hemochromatosis?LAB: Iron and TIBC-[id number] (Collection Date & Time - 08/14/2024 02:02 PM)* ? Value Reference Range ?Iron Bind.Cap.(TIBC) 312 25 0-450 - ug/dL * ?UIBC 255 118-369 - ug/dL * ?Iron 57 27-139 - ug/dL * ?Iron Saturation 18 15-55 - % * This lab was reviewed by Nicko Azar on 08/24/2024 at 14:46 PM EDT ?LAB: Ferritin-[id number] (Collection Date & Time - 08/14/2024 02:02 PM)* ? Value Reference Range ?Ferritin 23 15-150 - ng/mL * This lab was reviewed by Nicko Azar on 08/24/2024 at 14:46 PM EDT Clinical Notes: Stable with periodic phlebotomy. Recheck labs. She is getting phlebotomy every 2 months.??3.?Age-related osteoporosis without current pathological fracture?Imaging: BD BONE DENSITY DXA AXIAL W VERTEBRAL FX ASMT Clinical Notes: She has been on therapy for about 5 years. Can recheck bone density and see if she has progressive osteoporosis then she may need different medical therapy.??4.?Family history of malignant neoplasm of ovary?Imaging: MG MAMMO DIGITAL SCREENING BILAT Clinical Notes: Stable with periodic follow-up with gynecology.??5.?Mixed hyperlipidemia?LAB: LP+Non-HDL Cholesterol-[id number] (Collection Date & Time - 08/14/2024 02:02 PM)* ? Value Reference Range ?Cholesterol, Total 177 100- 199 - mg/dL * ?Triglycerides 91 0-149 - m g/dL * ?HDL Cholesterol 63 >39 - m g/dL * ?VLDL Cholesterol Kavon 17 5- 40 - mg/dL * ?LDL Chol Calc ([facility]) 97 0-9 9 - mg/dL * ?Non-HDL Cholesterol 114 0-1 29 - mg/dL * This lab was reviewed by Nicko Azar on 08/24/2024 at 14:46 PM EDT Clinical Notes: Stable on prior labs as reviewed. Recheck status??6.?Vitamin D deficiency, unspecified?LAB: Vitamin D, 40-Tjhjqwc-[id number] (Collection Date & Time - 08/14/2024 02:02 PM)* ? Value Reference Range ?Vitamin D, 25-Hydroxy 38.5 3 0.0-100.0 - ng/mL * This lab was reviewed by Nicko Azar on 08/24/2024 at 14:46 PM EDT Clinical Notes: Stable on prior labs as reviewed. Recheck status and would consider vitamin D supplementation for goal level of 30+ and if possible 50+?? 7.?Encounter for screening for malignant neoplasm of colon? Clinical Notes: Up-to-date on colon cancer screening??8.?Encounter for screening for cardiovascular disorders? Clinical Notes: Blood pressure is stable. Can check for comorbidity of hyperlipidemia and hyperglycemia to further assess risk.??9.?Encounter for immunization? Clinical Notes: Vaccines up to date ??10.?Encounter for antibody response examination? Clinical Notes: Titers have been checked in the past and there is immunity to rubeola ??11.?Encounter for screening for other viral diseases?LAB: HCV Antibody-[id number] (Collection Date & Time - 08/14/2024 02:02 PM)* ? Value Reference Range ?Hep C Virus Ab Non Reactive Non Reac tive - * This lab was reviewed by Nicko Azar on 08/24/2024 at 14:46 PM EDT Clinical Notes: Can screen for hepatitis C as per general recommendation ?? 12.?Encounter for screening mammogram for malignant neoplasm of breast?Imaging: MG MAMMO DIGITAL SCREENING BILAT Clinical Notes: Up-to-date on breast cancer screening??13.?Encounter for screening for osteoporosis? Clinical Notes: Up-to-date on osteoporosis screening??14.?Others? Clinical Notes: This note was created with [...] 65+ ?Influenza (Flu) Vaccine:?The Recommended Frequency is:?Annually ??YOUR PREVENTIVE WELLNESS PLAN:?Prevnar?The Recommended Frequency is:?1 dose age 65+ ?Abdominal Aortic Aneurysm:?The Recommended Frequency is:?Once, between the age range of 65-75 and for those who have smoked 100+ cigarettes in lifetime ?Colorectal Cancer Screening:?The Recommended Frequency is:?Every 10 years, Colonoscopy, Every 3 years, Cologuard ?Pneumococcal (Pneumonia) Vaccine:?The Recommended Frequency is:?1 dose age 65+ ?Influenza (Flu) Vaccine:?The Recommended Frequency is:?Annually ??Counseling:?BP Management:?LIFESTYLE RECOMMENDATION:?Lifestyle education regarding hypertension ?PHYSICAL ACTIVITY RECOMMENDATION:?Given encouragement to exercise ??Immunizations:?Hep A?06/07/2017.?Hep B?.?TdaP?Last Tdap was administered?04/19/2018 ?Tetanus?Last Tetanus was administered?10/16/2007 ?Influenza?Last Influenza was administered?02/17/2023 ?COVID?Private Eye?Pfizer ?First Dose?04/22/2020 ?Second Dose?05/13/2020 ?PCV 20 (Prevnar)?Last PCV 20 was administered?08/09/23 ??Screenings:?Breast Cancer Screening:?Date of most recent screening:?08/18/2023 ?Imaging Location?[facility] ?Colon cancer screening?Provider recommendation:?10 years ?Date of most recent screening:?08/26/2017 ?Osteoporosis Screening:?Date of most recent screening:?08/02/2022 ?Imaging Location?[facility] * Follow Up:?1 Year (Reason: A nnual) * Images: Billing Information: * Visit Code:? G0439 Subsequent Annual Wellness. G0442 Annual Alcohol Misuse Screening, 15 min. Modifiers: 25 G0444 Annual Depression Screening, 15 min. Modifiers: 25 G0446 Cardiovascular Screening. Modifiers: 25 G2211 Complex E/M Visit. Modifiers: 25 * Procedure Codes:? 1124F ACP DISCUSS-NO DSCNMKR DOCD. Modifiers: 25 * Sign off status: Completed true * Provider:?Valdo Azar MD Date:?08/14 Generated for Jannettei wally/Faantoniog/eTransmitting on:?08/28/2024 03:08 PM EDT History and Physical Notes * HPI (History of Present Illness) Category Sub-Category Detail Notes Category Not es Medicare Annual Visit Type of Visit -: Subsequ ent Annual Wellness Visit Language or Communication ba berenice addressed -: Yes Health Risk Assessment - [...] Vision Screening -: Yes, patient sees regular certified ethical hacker or linux system engineer Depression Screening -: PHQ2 done Hearing Screening -: Yes, concerned about hearin g loss Fall Risk and Home Safety Get Up [...]
--- OUTSIDE RECORDS SUMMARY | 2024-08-28 15:09 | XMS_ITS ---
Author Organization Valdo Azar MD Address [address] [phone] Care Team Providers Care Creping Machine Operator Helper Name Role Phone Valdo Azar Primary Care Provider REASON FOR VISIT clinical call Encounters Encounter Location Date Provider Diagnosis Valdo Azar MD [address] [place] [address] [place] [phone] 11/09/2023 Valdo Azar Plan Of Treatment Next Appt Details Provider Name:Valdo Azar , 11/06/2024 03:45:00 PM, [address] [place] [address], [phone], Provider Name:Valdo Azar , 08/22/2025 01:00:00 PM, [address] [place] [address], [phone], Progress Notes * Heather SWIFT EDOB:1955 (68 yo F)Acc No.[id number]:11/09/2023 Patient:?Heather SWIFT :1955???Age:68 Y???Sex:Female Address:[address], [place], [address] * true * Date:? Generated for Printi ng/Faxing/eTransmitting on:?08/28/2024 03:08 PM EDT
== END 2024-08-28 13:08 | disposition home or self-care (01) ==
LOC: HO.BBR 13:07
PROVIDERS: PCP Internal Medicine; Visit Provider Internal Medicine Gastroenterology
DX: Z13.89 Encounter for screening for other disorder (principal)

== ENCOUNTER 2024-10-30 10:50 | Outpatient (REF) | payer MEDICARE, OTHER, SELFPAY ==
--- OUTSIDE RECORDS SUMMARY | 2024-10-30 12:03 | XMS_ITS | Patient Health Record ---
Author Organization [facility] Address [address] [place] [phone] Care Team Providers Care Graduate Fellow Name Role Phone [facility] Primary Care Provider Allergies No Known Allergies Results Component Value Reference Range Notes BD BONE DENSITY DXA AXIAL SK [facility] Reviewed date:10/02/2024 01:58:29 PM Interpretation: Performing Lab: Notes/Report: See Note [facility], a member of [employer] HISTORY: The patient is a 69-year-old postmenopausal female with clinical concern for metabolic bone disease. FINDINGS: Dual energy x-ray absorptiometry of the lumbar spine and femurs is performed. The mean bone mineral density at L1-L4 is 0.993 gm/cm2 which is 84% of that of young normals and 105% of that of age matched controls. This yields a T- score of -1.6 and a Z-score of 0.4 which is diagnostic of osteopenia. The mean bone mineral density of the femurs bilaterally is 0.758 gm/cm2 which is 75% of that of young normals and 93% of that of age matched controls. This yields a T-score of -2.0 and a Z-score of -0.5 which is diagnostic of osteopenia the T- score of the right femoral neck is -2.4 and that of the left femoral neck is -2.2 which is diagnostic of osteopenia. IMPRESSION: 1. Osteopenia. There has been an increase of 1.3% in bone mineral density in the lumbar spine since the prior examination of 08/03/2022. There has been a decrease of 1.5% in bone mineral density in the right femur and a decrease of 2.4% in bone mineral density in the left femur. 2. FRAX analysis yields a 10-year probability of major osteoporotic fracture of 33.9% and a 10-year probability of hip fracture of 6.2%. Code 38701 -------- FINAL REPORT -------- Dictated By: Judah Marie Dictated Date: 10/02/2024 10:07 ET Assigned Physician: Judah Marie Reviewed and Electronically Signed By: Judah Marie Signed Date: 10/02/2024 10:08 ET Workstation ID: [id number] Transcribed By: Self Edit Transcribed Date: 10/02/2024 10:07 ET MG MAMMO DIGITAL SCREENING W ARIAS BILAT Reviewed date:10/02/2024 01:58:29 PM Interpretation: Performing Lab: Notes/Report: See Note [facility], a member of [facility] CLINICAL: The patient is a 69 years Female presenting for routine screening mammography. COMPARISON: Most recently 08/17/2023 and most remotely 06/28/2017. TECHNIQUE: Full-field digital mammography of the breasts bilaterally consisting of tomosynthesis in MLO and CC projection is performed in the [employer] 2000-D unit. Computer aided detection utilizing the iovox system was utilized. FINDINGS: The breasts are again seen to be composed of a combination of fatty and fibroglandular elements. A single coarse, benign calcification is again seen in each breast. In the right breast in the nipple line, approximately 4 cm posterior to the nipple, there is an oval somewhat irregular masslike asymmetry measuring 7 mm in diameter, seen to best advantage on thin slice MLO tomographic image 32/55 and on thin slice CC tomographic image 25/54. No mass is seen in the left breast. There is no cluster microcalcifications, skin thickening, nipple retraction in either breast. TISSUE DENSITY: There are scattered areas of fibroglandular density. (BI-RADS category B) IMPRESSION: 1. In the right breast in the nipple line, 4 cm from the nipple, there is a 7 mm diameter somewhat irregular masslike asymmetry. Further mammographic evaluation with spot compression MLO tomographic and spot compression CC tomographic projections is recommended, to be followed by ultrasound should this finding persist. The patient will be contacted to arrange for this additional imaging. 2. No mammographic evidence of malignancy in the left breast. BI-RADS CATEGORY: 0 - INCOMPLETE - NEED ADDITIONAL IMAGING EVALUATION RECOMMENDATION: Additional right breast imaging recommended. Mammo Location: [facility], [address] [place] [id number] -------- FINAL REPORT -------- Dictated By: Judah Marie Dictated Date: 10/02/2024 09:15 ET Assigned Physician: Judah Marie Reviewed and Electronically Signed By: Judah Marie Signed Date: 10/02/2024 09:23 ET Workstation ID: [id number] Transcribed By: Self Edit Transcribed Date: 10/02/2024 09:15 ET MG MAMMO DIAGNOSTIC ADDL JAYLEEN WS RIGHT Reviewed date:10/15/2024 06:18:33 PM Interpretation: Performing Lab: Notes/Report: See Note [facility], a member of [employer] EXAM: DIAGNOSTIC MAMMOGRAPHY, UNILATERAL RIGHT ULTRASOUND: DIAGNOSTIC ULTRASOUND, UNILATERAL RIGHT HISTORY: Abnormal screening mammography. Incompletely characterized right breast mass COMPARISON: Right mammography 10/02/24 TECHNIQUE: Tomosynthesis of the right breast using spot compression in multiple projections ADDITIONAL IMAGING: None High-frequency linear transducer ultrasound of the right breast targeted to the area(s) of clinical concern. Computer aided detection was not utilized. TISSUE DENSITY: There are scattered areas of fibroglandular density. (BI-RADS category B) FINDINGS: MAMMOGRAPHY: RIGHT BREAST: There is a circumscribed equal density round 0.6 cm mass in the plane of the nipple centrally. No spiculation or distortion. No suspicious calcifications. ULTRASOUND: RIGHT BREAST Deep central right breast There is a sharply circumscribed anechoic oval 0.5 cm mass with long axis parallel. Mild posterior enhancement. No suspicious color signal. This has benign features No suspicious mass. No suspicious area of altered echotexture. IMPRESSION: There is a small cyst which appears to account for the mammogram finding based upon size, shape and location. No new suspicious right breast findings A negative mammogram in the presence of a clinically suspicious palpable abnormality does not preclude the possibility of malignancy or alter the indications for biopsy. ASSESSMENT: BI-RADS 2: BENIGN RECOMMENDATION(S): 1: Routine screening mammogram BILATERAL in 1 year. [facility] location[facility] [address], [address] -------- FINAL REPORT -------- Dictated By: Santi Willis Dictated Date: 10/15/2024 16:48 ET Assigned Physician: Santi Willis Reviewed and Electronically Signed By: Santi Willis Signed Date: 10/15/2024 16:53 ET Workstation ID: [id number] Transcribed By: Self Edit Transcribed Date: 10/15/2024 16:48 ET US BREAST LIMITED RIGHT Reviewed date:10/15/2024 06:18:33 PM Interpretation: Performing Lab: Notes/Report: See Note [facility], a member of [employer] EXAM: DIAGNOSTIC MAMMOGRAPHY, UNILATERAL RIGHT ULTRASOUND: DIAGNOSTIC ULTRASOUND, UNILATERAL RIGHT HISTORY: Abnormal screening mammography. Incompletely characterized right breast mass COMPARISON: Right mammography 10/02/24 TECHNIQUE: Tomosynthesis of the right breast using spot compression in multiple projections ADDITIONAL IMAGING: None High-frequency linear transducer ultrasound of the right breast targeted to the area(s) of clinical concern. Computer aided detection was not utilized. TISSUE DENSITY: There are scattered areas of fibroglandular density. (BI-RADS category B) FINDINGS: MAMMOGRAPHY: RIGHT BREAST: There is a circumscribed equal density round 0.6 cm mass in the plane of the nipple centrally. No spiculation or distortion. No suspicious calcifications. ULTRASOUND: RIGHT BREAST Deep central right breast There is a sharply circumscribed anechoic oval 0.5 cm mass with long axis parallel. Mild posterior enhancement. No suspicious color signal. This has benign features No suspicious mass. No suspicious area of altered echotexture. IMPRESSION: There is a small cyst which appears to account for the mammogram finding based upon size, shape and location. No new suspicious right breast findings A negative mammogram in the presence of a clinically suspicious palpable abnormality does not preclude the possibility of malignancy or alter the indications for biopsy. ASSESSMENT: BI-RADS 2: BENIGN RECOMMENDATION(S): 1: Routine screening mammogram BILATERAL in 1 year. [facility] location[facility] [address], [address] -------- FINAL REPORT -------- Dictated By: Santi Willis Dictated Date: 10/15/2024 16:48 ET Assigned Physician: Santi Willis Reviewed and Electronically Signed By: Santi Willis Signed Date: 10/15/2024 16:53 ET Workstation ID: [id number] Transcribed By: Self Edit Transcribed Date: 10/15/2024 16:48 ET Iron and TIBC-[id number] Reviewed date:08/24/2024 02:46:06 PM Interpretation: Performing Lab:[facility] [place] [address] [place] [address], Phone - [phone], Director - MDJodry Notes/Report: Iron Bind.Cap.(TIBC) 312 250-450 ug/dL UIBC 255 118-369 ug/dL Iron 57 27-139 ug/dL Iron Saturation 18 15-55 % Urinalysis, Complete-997127 Reviewed date:08/24/2024 02:46:06 PM Interpretation: Performing Lab:[facility] [address], Phone - [phone], Director - [place] Notes/Report: Specific [place] 1.019 1.005-1.030 pH 6.0 5.0-7.5 Urine-Color Yellow [...] seen /lpf Bacteria None seen None seen/Few Ferritin-[id number] Reviewed date:08/24/2024 02:46:06 PM Interpretation: Performing Lab:[facility] [place] [address] [place] [address], Phone - [phone], Director - [place] Notes/Report: Ferritin 23 15-150 ng/mL CBC With Differential/Platel et-[id number] Reviewed date:08/24/2024 02:46:06 PM Interpretation: Performing Lab:[facility] [address] [place] [address], Phone - [phone], Director - Mandeep Notes/Report: WBC 8.6 3.4-10.8 [...] Grans (Abs) 0.0 0.0-0.1 x10E3/uL Vitamin D, 85-Xzgcyhm-[id number] Reviewed date:08/24/2024 02:46:06 PM Interpretation: Performing Lab:[facility] [place], [address] [place] [address], [place], Phone - [phone], Director - Mandeep Notes/Report: Vitamin D, 25-Hydroxy 38.5 30.0-100.0 ng/mL Vitamin D deficiency has been defined by the [place] of Medicine and an Endocrine Society practice guideline as a level of serum 25-OH vitamin D less than 20 ng/mL (1,2). The Endocrine Society went on to further define vitamin D insufficiency as a level between 21 and 29 ng/mL (2). 1. IOM ([place] of Medicine). 2010. Dietary reference intakes for calcium and D. [place]: The National Academies Press. 2. Gagandeep MF, Lisa NC, Nathan BAILEY, et al. Evaluation, treatment, and prevention of vitamin D deficiency: an Endocrine Society clinical practice guideline. JCEM. 2010; 96(7):1911-30. Comp. Metabolic Panel (14)-3 [id number] Reviewed date:08/24/2024 02:46:06 PM Interpretation: Performing Lab:[facility] [place], [address] [facility], Phone - [phone], Director - [facility] Notes/Report: Glucose 85 70-99 mg/dL BUN 17 [...] IU/L ALT (SGPT) 19 0-32 IU/L LP+Non-HDL Cholesterol-77138 5 Reviewed date:08/24/2024 02:46:06 PM Interpretation: Performing Lab:[facility] [place], [address] [facility], Phone - [phone], Director - [facility] Notes/Report: Cholesterol, Total 177 100-199 mg/dL Triglycerides 91 0-149 mg/dL HDL Cholesterol 63 >39 mg/dL VLDL Cholesterol Kavon 17 5-40 mg/dL LDL Chol Calc (NIH) 97 0-99 mg/dL Non-HDL Cholesterol 114 0-129 mg/dL HCV Antibody-[id number] Reviewed date:08/24/2024 02:46:06 PM Interpretation: Performing Lab:[facility] [place], [address] [facility], Phone - [phone], Director - [facility] Notes/Report: Hep C Virus Ab Non Reactive Non Reactive HCV antibody alone does not differentiate between previously resolved infection and active infection. Equivocal and Reactive HCV antibody results should be followed up with an HCV RNA test to support the diagnosis of active HCV infection. BD BONE DENSITY DXA AXIAL W VERTEBRAL FX ASMT Reviewed date:10/17/2024 10:02:59 AM Interpretation: Performing Lab: Notes/Report: MG MAMMO DIGITAL SCREENING B ILAT Reviewed date:10/17/2024 10:02:35 AM Interpretation: Performing Lab: Notes/Report: Reason For Referral No Information Medications Medication SIG (Take, Route, Frequency, Duration) Notes Start Date End Date Status Calcium Citrate-Vitamin D Not-Taking Vitamin D 2000 UNIT 1 capsule Orally Onc e a day Not-Taking Fosamax 70 MG 1 tablet Orally once a week; Duration: 30 day(s) Not-Taking Immunizations Vaccine Route Administration Date Status Comments *PREVNAR 20 Unknown 06/13/2023 Administered *Tdap IM Intramuscular 04/19/2018 Administered COVID 19 (Pfizer 12+) Unknown 08/28/2021 Administered COVID-19 Pfizer BiValent Booster Unknown 01/22/2022 Administered OIFYJ-28-Tdhuvw Vaccine Unknown 04/22/2020 Administered SRKIM-27-Qqnezt Vaccine Unknown 05/13/2020 Administered YRDEW-63-Sfhnhf Vaccine Unknown 02/17/2021 Administered Hep A, adult Unknown 07/18/2008 Administered Hep A, adult Unknown 06/07/2017 Administered Hep B, adult dosage, for intramuscular use Unknown 06/07/2017 Administered Hep B, adult dosage, for intramuscular use Unknown 09/22/2017 Administered Hep B, adult dosage, for intramuscular use IM Intramuscular 12/29/2017 Administered Mfd [employer] Influenza Unknown 03/02/2018 Administered Influenza Unknown 01/31/2020 [...] Status Risk Notes Problem Vitamin D deficiency (82600807) Vitamin D deficiency, unspecified (E55.9) Active confirmed Problem Mixed hyperlipidemia (392241283) Mixed hyperlipidemia (E78.2) Active confirmed Problem Hereditary hemochromatosis (40094770) Hereditary hemochromatosis (E83.110) Active confirmed Problem Hypocalcemia (0230063) Hypocalcemia (E83.51) Active confirmed Problem Age-related osteoporosis (274191821) Age-related osteoporosis without current pathological fracture (M81.0) Active confirmed Problem Family history of malignant neoplasm of ovary (173316805) Family history of malignant neoplasm of ovary (Z80.41) Active confirmed Problem 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 Problem Hemangioma of skin and subcutaneous tissue (643811426) Hemangioma of skin and subcutaneous tissue (D18.01) Problem resolved confirmed Vital Signs Heart Rate 88 /min 08/14/2024 Temperature 97.1 degrees Fahrenheit 08/14/2024 Blood pressure diastolic 70 mm Hg 08/14/2024 Oximetry 99 % 08/14/2024 Height 5 ft in 08/14/2024 Blood pressure systolic 136 mm Hg 08/14/2024 Weight 121 lbs 08/14/2024 BMI 23.63 kg/m2 08/14/2024 Encounters Encounter Location Date Provider Diagnosis Valdo [facility]ar MD [address] [id number] 08/14/2024 [facility] Hereditary hemochromatosis E83.110 ; [...] screening for osteoporosis Z13.820 [facility] MD [address] [facility] [address] [place] [id number] 11/09/2023 Valdo Azar MD [address] [id number] 08/17/2024 [facility] Assessments Encounter Date Diagnosis [...] and if possible 50+ 08/14/2024 Encounter for screening for malignant neoplasm of colon (ICD-10 - Z12.11) Up-to-date on colon cancer screening 08/14/2024 Encounter for general adult medical examination [...] true hypertension 08/14/2024 Encounter for screening for cardiovascular disorders [...] PANEL 07/29/2021 COMPREHENSIVE METABOLIC PANEL 08/02/2022 FERRITIN 07/29/2021 FERRITIN 08/02/2022 FERRITIN 07/29/2020 FERRITIN 05/09/2019 FERRITIN 04/06/2017 HEPATITIS C VIRUS SCREEN 08/02/2022 LIPID PROFILE 08/02/2022 LIPID PROFILE 07/29/2021 LIPID PROFILE 05/09/2019 LIPID PROFILE 07/29/2020 LIPID PROFILE 04/06/2017 TOTAL IRON BINDING CAPACITY 07/29/2021 URINALYSIS 08/02/2022 URINALYSIS 07/29/2021 URINALYSIS 07/29/2020 URINALYSIS 05/09/2019 URINALYSIS 04/06/2017 VITAMIN D, 25-HYDROXY 04/06/2017 VITAMIN D, 25-HYDROXY 05/09/2019 VITAMIN D, 25-HYDROXY 07/29/2020 VITAMIN D, 25-HYDROXY 07/29/2021 VITAMIN D, 25-HYDROXY 08/02/2022 MYRIAD myRisk 04/06/2017 MMR (MEASLES, MUMPS, RUBELLA) IGG TITER 05/09/2019 Future Test Test Name Order Date Iron and TIBC-[id number] 01/31/2024 Ferritin-[id number] 01/31/2024 CBC With Differential/Platelet-[id number] Comp. Metabolic Panel [id number] 2023 Next Appt Details Provider Name:Valdo Azar , 11/06/2024 03:45:00 PM, [address] [place] [address], [place] [address], [place], [place], [phone], Provider Name:Valdo Azar , 08/22/2025 01:00:00 PM, [address] [place] [address], [place] [address], [place], [place], [phone], Insurance Providers Payer Name Payer Address Payer Phone Subscriber Number Group Number Insured Name Patient Relationship to Insured Coverage Start Date Coverage End Date MEDICARE [address] [place] [phone] [id number] Heather Swift Self - patient is the insured [facility] [address] [place] [address] [id number] Mattveda Heather Self - patient is the insured Medical [...]
--- OUTSIDE RECORDS SUMMARY | 2024-10-30 12:03 | XMS_ITS | Clinical Summary ---
Author Organization [facility] Address [address] [place] [phone] Phone Care Team Providers Care Postdoctoral Scientist Name Role Phone Valdo Azar MD Primary Care Provider [phone] Encounters Date Type Department Care Team Description 10/15/2024 2:27 PM EDT - 10/15/2024 11:59 PM EDT Hospital Encounter [facility] Ultrasound [address] [place] [phone] Breast asymmetry Discharge Disposition: Home or Self Care 10/15/2024 1:44 PM EDT - 10/15/2024 11:59 PM EDT Hospital Encounter [facility] at [address] [phone] Breast asymmetry Discharge Disposition: Home or Self Care 10/02/2024 7:59 AM EDT - 10/02/2024 11:59 PM EDT Hospital Encounter [facility] Bone Density [address] [place] [phone] Age-related osteoporosis without current pathological fracture Discharge Disposition: Home or Self Care 10/02/2024 7:58 AM EDT - 10/02/2024 11:59 PM EDT Hospital Encounter [facility] at [address] [phone] Family history of malignant neoplasm of ovary; Encounter for screening mammogram for malignant neoplasm of breast Discharge Disposition: Home or Self Care from Last 3 Months Social History Tobacco Use Types Packs/Day Years Used Date Smoking Tobacco: Never Assessed Comments No Sex and Gender Information Value Date Recorded Sex Assigned at Not on file Legal Sex Female 5:45 PM EST Gender Identity Not on file Sexual Orientation Not on file Obstetrics History Para Term AB IAB SAB Ectopic Multiple Livin g Live Births 2 Last Filed Vital Signs Vital Sign Reading Time Taken Comments Blood Pressure - - Pulse - - Temperature - - Respiratory Rate - - Oxygen Saturation - - Inhaled Oxygen Concentration - - Weight 54.4 kg (120 lb) 10/02/2024 8:14 AM EDT Height 152.4 cm (5') 10/02/2024 8:14 AM EDT Body Mass Index 23.44 10/02/2024 8:14 AM EDT Plan of Treatment Health Maintenance Due Date Last Done Comments Zoster Vaccines (1 of 2) 08/08/2007 Cholesterol Screening (Lipid Panel) 04/03/2022 Colorectal Cancer Screening: Colonoscopy 04/03/2022 Depression Screening 04/03/2022 Hepatitis C Screening 04/03/2022 Medicare Annual Wellness Visit 04/03/2022 Social Influencers of Health Screening 04/03/2022 Falls Risk Assessment 2022 COVID-19 Vaccine ( season) 2024 11/09/2023, 01/22/2022, 08/28/2021, Additional history exists Influenza Vaccine (Season Ended) 2024 02/17/2023, 01/31/2020, 03/02/2018, Additional history exists Breast Cancer Screening 10/15/2026 10/16/19, 10/02/2024, 08/18/2023, Additional history exists DTaP,Tdap,and Td Vaccines (3 - Td or Tdap) 04/19/2028 04/19/2018, 10/16/2007 RSV Immunization Adult Patients (1 - 1-dose 75+ series) 2032 Osteoporosis Screening (Bone Density Screening) 10/02/2034 10/02/2024, 08/03/2022, 07/23/2020, Additional history exists Hepatitis A Vaccines Aged Out 06/07/2017, 07/19/19 09 No longer eligible based on patient's age to complete this topic Hepatitis B Vaccines Completed 12/29/2017, 09/22/2017, 06/07/2017 Pneumococcal Vaccine: 50+ Years Completed 06/13/2023 HIB Vaccines Aged Out No longer eligi [...] Procedure Name Priority Date/Time Associated Diagnosis Comments MG MAMMO DIAGNOSTIC ADDL VIEWS RIGHT Routine 10/15/2024 3:26 PM EDT Breast asymmetry US BREAST LIMITED RIGHT Routine 10/15/2024 3:12 PM EDT Breast asymmetry MG MAMMO DIGITAL SCREENING W DENYS BILAT Routine 10/02/2024 8:32 AM EDT Family history of malignant neoplasm of ovary Encounter for screening mammogram for malignant neoplasm of breast BD BONE DENSITY DXA AXIAL SKELETON Routine 10/02/2024 8:23 AM EDT Age-related osteoporosis without current pathological fracture EXTERNAL CLINICAL LAB 08/28/2024 from Last 3 Months Results * MG Mammo Diagnostic Addl Views Right (10/15/2024 3:26 PM EDT) Anatomical Region Laterality Modality Breast Right Mammography 10/15/2024 4:48 PM EDT Impressions 10/15/2024 4:53 PM EDT There is a small cyst which appears [...] year. [facility]amm[facility] location: [facility] at [address], [address] -------- FINAL REPORT -------- Dictated By: Santi Willis Dictated Date: 10/15/2024 16:48 ET Assigned Physician: Santi Willis Reviewed and Electronically Signed By: Santi Willis Signed Date: 10/15/2024 16:53 ET Workstation ID: [id number] Transcribed By: Self Edit Transcribed Date: 10/15/2024 16:48 ET Narrative 10/15/2024 4:53 PM EDT EXAM: DIAGNOSTIC MAMMOGRAPHY, UNILATERAL RIGHT ULTRASOUND: DIAGNOSTIC [...] mass. No suspicious area of altered echotexture. Procedure Note Santi Willis MD - 10/15/2024 EXAM: DIAGNOSTIC MAMMOGRAPHY, UNILATERAL RIGHT ULTRASOUND: DIAGNOSTIC ULTRASOUND, UNILATERAL RIGHT HISTORY: Abnormal screening mammography. Incompletely characterizedright breast mass COMPARISON: Right mammography 10/02/24 TECHNIQUE: Tomosynthesis of the right breast using spot compression inmultiple projections ADDITIONAL IMAGING: None High-frequency linear transducer ultrasound of the right breast targetedto the area(s) of clinical concern. Computer aided detection was not utilized. TISSUE DENSITY: There are scattered areas of fibroglandular density.(BI-RADS category B) FINDINGS: MAMMOGRAPHY: RIGHT BREAST: There is a circumscribed equal density round 0.6 cm mass in the plane ofthe nipple centrally. No spiculation or distortion. No suspiciouscalcifications. ULTRASOUND: RIGHT BREAST Deep central right breast There is a sharply circumscribed anechoic oval 0.5 cm mass with long axisparallel. Mild posterior enhancement. No suspicious color signal. This has benign features No suspicious mass. No suspicious area of altered echotexture. IMPRESSION: There is a small cyst which appears to account for the mammogram findingbased upon size, shape and location. No new suspicious right breast findings A negative mammogram in the presence of a clinically suspicious palpableabnormality does not preclude the possibility of malignancy or alter theindications for biopsy. ASSESSMENT: BI-RADS 2: BENIGN RECOMMENDATION(S): 1: Routine screening mammogram BILATERAL in 1 year. [facility]amm[facility] location: [facility] at [address], [address] -------- FINAL REPORT -------- Dictated By: Santi Willis Dictated Date: 10/15/2024 16:48 ET Assigned Physician: Santi Willis Reviewed and Electronically Signed By: Santi Willis Signed Date: 10/15/2024 16:53 ET Workstation ID: [id number] Transcribed By: Self Edit Transcribed Date: 10/15/2024 16:48 ET us Valdo Azar MD IMG BI PROCEDURES Final Result * US Breast Limited Right (10/15/2024 3:12 PM EDT) Anatomical Region Laterality Modality Breast Right Ultrasound 10/15/2024 4:48 PM EDT Impressions 10/15/2024 4:53 PM EDT There is a small cyst which appears [...] year. Mammography location: [facility] at [address], [address] -------- FINAL REPORT -------- Dictated By: Santi Willis Dictated Date: 10/15/2024 16:48 ET Assigned Physician: Santi Willis Reviewed and Electronically Signed By: Santi Willis Signed Date: 10/15/2024 16:53 ET Workstation ID: [id number] Transcribed By: Self Edit Transcribed Date: 10/15/2024 16:48 ET Narrative 10/15/2024 4:53 PM EDT EXAM: DIAGNOSTIC MAMMOGRAPHY, UNILATERAL RIGHT ULTRASOUND: DIAGNOSTIC [...] mass. No suspicious area of altered echotexture. Procedure Note Santi Willis MD - 10/15/2024 EXAM: DIAGNOSTIC MAMMOGRAPHY, UNILATERAL RIGHT ULTRASOUND: DIAGNOSTIC ULTRASOUND, UNILATERAL RIGHT HISTORY: Abnormal screening mammography. Incompletely characterizedright breast mass COMPARISON: Right mammography 10/02/24 TECHNIQUE: Tomosynthesis of the right breast using spot compression inmultiple projections ADDITIONAL IMAGING: None High-frequency linear transducer ultrasound of the right breast targetedto the area(s) of clinical concern. Computer aided detection was not utilized. TISSUE DENSITY: There are scattered areas of fibroglandular density.(BI-RADS category B) FINDINGS: MAMMOGRAPHY: RIGHT BREAST: There is a circumscribed equal density round 0.6 cm mass in the plane ofthe nipple centrally. No spiculation or distortion. No suspiciouscalcifications. ULTRASOUND: RIGHT BREAST Deep central right breast There is a sharply circumscribed anechoic oval 0.5 cm mass with long axisparallel. Mild posterior enhancement. No suspicious color signal. This has benign features No suspicious mass. No suspicious area of altered echotexture. IMPRESSION: There is a small cyst which appears to account for the mammogram findingbased upon size, shape and location. No new suspicious right breast findings A negative mammogram in the presence of a clinically suspicious palpableabnormality does not preclude the possibility of malignancy or alter theindications for biopsy. ASSESSMENT: BI-RADS 2: BENIGN RECOMMENDATION(S): 1: Routine screening mammogram BILATERAL in 1 year. [facility]amm[facility] location: [facility] at [address], [address] -------- FINAL REPORT -------- Dictated By: Santi Willis Dictated Date: 10/15/2024 16:48 ET Assigned Physician: Santi Willis Reviewed and Electronically Signed By: Santi Willis Signed Date: 10/15/2024 16:53 ET Workstation ID: [id number] Transcribed By: Self Edit Transcribed Date: 10/15/2024 16:48 ET us Valdo Azar MD IMG US PROCEDURES Final Result * (ABNORMAL) MG Mammo Digital Screening w Denys bilat (10/02/2024 8:32 AM EDT) Anatomical Region Laterality Modality Breast Bilateral Mammography 10/02/2024 9:15 AM EDT Impressions 10/02/2024 9:23 AM EDT 1. In the right breast in the [...] Additional right breast imaging recommended. Mammo Location: [facility], [address] [place] [id number] -------- FINAL REPORT -------- Dictated By: Judah Marie Dictated Date: 10/02/2024 09:15 ET Assigned Physician: Judah Marie Reviewed and Electronically Signed By: Judah Marie Signed Date: 10/02/2024 09:23 ET Workstation ID: [id number] Transcribed By: Self Edit Transcribed Date: 10/02/2024 09:15 ET Narrative 10/02/2024 9:23 AM EDT CLINICAL: The patient is a 69 years Female presenting for routine screening mammography. COMPARISON: Most recently 08/17/2023 and most remotely 06/28/2017. TECHNIQUE: Full-field digital mammography of the breasts bilaterally consisting of tomosynthesis in MLO and CC projection is performed in the [employer] 2000-D unit. Computer aided detection utilizing the iCAD system was utilized. FINDINGS: The breasts are [...] areas of fibroglandular density. (BI-RADS category B) Procedure Note Judah Marie MD - 10/02/2024 CLINICAL: The patient is a 69 years Female presenting for routinescreening mammography. COMPARISON: Most recently 08/17/2023 and most remotely 06/28/2017. TECHNIQUE: Full-field digital mammography of the breasts bilaterallyconsisting of tomosynthesis in MLO and CC projection is performed in the[employer]utee 2000-D unit. Computer aided detection utilizing the iCADsystem was utilized. FINDINGS: The breasts are again seen to be composed of a combination offatty and fibroglandular elements. A single coarse, benign calcificationis again seen in each breast. In the right breast in the nipple line,approximately 4 cm posterior to the nipple, there is an oval somewhatirregular masslike asymmetry measuring 7 mm in diameter, seen to bestadvantage on thin slice MLO tomographic image 32/55 and on thin slice CCtomographic image 25/54. No mass is seen in the left breast. There is nocluster microcalcifications, skin thickening, nipple retraction in eitherbreast. TISSUE DENSITY: There are scattered areas of fibroglandular density.(BI-RADS category B) IMPRESSION: 1. In the right breast in the nipple line, 4 cm from the nipple, there cleopatra 7 mm diameter somewhat irregular masslike asymmetry. Furthermammographic evaluation with spot compression MLO tomographic and spotcompression CC tomographic projections is recommended, to be followed byultrasound should this finding persist. The patient will be contacted toarrange for this additional imaging. 2. No mammographic evidence of malignancy in the left breast. BI-RADS CATEGORY: 0 - INCOMPLETE - NEED ADDITIONAL IMAGING EVALUATION RECOMMENDATION: Additional right breast imaging recommended. Mammo Location: [facility], [address] [place] [address] -------- FINAL REPORT -------- Dictated By: Judah Marie Dictated Date: 10/02/2024 09:15 ET Assigned Physician: Judah Marie Reviewed and Electronically Signed By: Judah Marie Signed Date: 10/02/2024 09:23 ET Workstation ID: [id number] Transcribed By: Self Edit Transcribed Date: 10/02/2024 09:15 ET us Valdo Azar MD IMG BI PROCEDURES Final Result * BD Bone Density DXA Axial Skeleton (10/02/2024 8:23 AM EDT) Anatomical Region Laterality Modality Wrist, Hip, L-spine Bone Densito metry 10/02/2024 10:0 7 AM EDT Impressions 10/02/2024 10:08 AM EDT 1. Osteopenia. There has been an increase [...] probability of hip fracture of 6.2%. Code 27922 -------- FINAL REPORT -------- Dictated By: Judah Marie Dictated Date: 10/02/2024 10:07 ET Assigned Physician: Judah Marie Reviewed and Electronically Signed By: Judah Marie Signed Date: 10/02/2024 10:08 ET Workstation ID: [id number] Transcribed By: Self Edit Transcribed Date: 10/02/2024 10:07 ET Narrative 10/02/2024 10:08 AM EDT HISTORY: The patient is a 69-year-old postmenopausal female with clinical concern for metabolic bone disease. FINDINGS: Dual energy x-ray absorptiometry of the lumbar spine and femurs is performed. The mean bone mineral density at L1-L4 is 0.993 gm/cm2 which is 84% of that of young normals and 105% of that of age matched controls. This yields a T-score of -1.6 and a Z-score of 0.4 which is diagnostic of osteopenia. The mean bone mineral density of the femurs bilaterally is 0.758 gm/cm2 which is 75% of that of young normals and 93% of that of age matched controls. This yields a T-score of -2.0 and a Z-score of -0.5 which is diagnostic of osteopenia the T-score of the right femoral neck is -2.4 and that of the left femoral neck is -2.2 which is diagnostic of osteopenia. Procedure Note Judah Marie MD - 10/02/2024 HISTORY: The patient is a 69-year-old postmenopausal female with clinicalconcern for metabolic bone disease. FINDINGS: Dual energy x-ray absorptiometry of the lumbar spine and femursis performed. The mean bone mineral density at L1-L4 is 0.993 gm/cm2 whichis 84% of that of young normals and 105% of that of age matched controls.This yields a T-score of -1.6 and a Z-score of 0.4 which is diagnostic ofosteopenia. The mean bone mineral density of the femurs bilaterally is 0.758 gm/bx9btdha is 75% of that of young normals and 93% of that of age matchedcontrols. This yields a T-score of -2.0 and a Z-score of -0.5 which isdiagnostic of osteopenia the T- score of the right femoral neck is -2.4 andthat of the left femoral neck is -2.2 which is diagnostic of osteopenia. IMPRESSION: 1. Osteopenia. There has been an increase of 1.3% in bone mineral densityin the lumbar spine since the prior examination of 08/03/2022. There hasbeen a decrease of 1.5% in bone mineral density in the right femur and adecrease of 2.4% in bone mineral density in the left femur. 2. FRAX analysis yields a 10-year probability of major osteoporoticfracture of 33.9% and a 10-year probability of hip fracture of 6.2%. Code 17469 -------- FINAL REPORT -------- Dictated By: Judah Marie Dictated Date: 10/02/2024 10:07 ET Assigned Physician: Judah Marie Reviewed and Electronically Signed By: Judah Marie Signed Date: 10/02/2024 10:08 ET Workstation ID: [id number] Transcribed By: Self Edit Transcribed Date: 10/02/2024 10:07 ET Valdo Azar MD IMG DXA PROCEDURES Final Resul t * External clinical lab (08/28/2024) Provider [facility] BLOOD ORDERABLES Fin al Result from Last 3 Months Insurance MEDICARE WELL[employer] Care Teams Postdoctoral Scientist Relationship Specialty Start Date End Date Valdo Azar MD [address] [address] PCP - General Internal Medicine 10/02/24
== END 2024-10-30 10:51 | disposition home or self-care (01) ==
LOC: HO.BBR 10:50
PROVIDERS: PCP Internal Medicine; Visit Provider Internal Medicine Gastroenterology
DX: Z13.89 Encounter for screening for other disorder (principal)

== ENCOUNTER 2025-01-03 13:05 | Outpatient (REF) | payer MEDICARE, OTHER, SELFPAY ==
--- OUTSIDE RECORDS SUMMARY | 2025-01-01 10:10 | XMS_ITS | Encounter Summary ---
Author Organization [facility] Address [address] [place] [address] Care Team Providers Care Guitar Repairer Name Role Phone Valdo Azar MD Primary Care Provider [phone] Reason for Visit * Reason Comments Follow-up hemochromatosis Encounter Details Date Type Department Care Team (Latest Contact Info) Description 01/01/2025 10:10 AM EDT Office Visit Gastroenterology - [address] [phone] Casandra Lemos PA [address] [place] [phone] Hereditary hemochromatosis (CMS/HCC V24) (Primary Dx) Social History Tobacco Use Types Packs/Day Years Used Date Smoking Tobacco: Never Smokeless Tobacco: Never Tobacco Cessation:Counseling Given: Not Answered Alcohol Use Standard Drinks/Week Comments Yes 0 (1 standard drink = 0.6 oz pur e alcohol) glass of wine Comments No Sex and Gender Information Value Date Recorded Sex Assigned at Not on file Legal Sex Female 5:45 PM EST Gender Identity Not on file Sexual Orientation Not on file documented as of this encounter Last Filed Vital Signs Vital Sign Reading Time Taken Comments Blood Pressure - - Pulse - - Temperature - - Respiratory Rate - - Oxygen Saturation - - Inhaled Oxygen Concentration - - Weight 55.3 kg (122 lb) 01/01/2025 9:57 AM EDT Height 152.4 cm (5') 01/01/2025 9:57 AM EDT Body Mass Index 23.83 01/01/2025 9:57 AM EDT documented in this encounter Progress Notes * LISA Barraza - 01/01/2025 10:10 AM EDTAssociated Problem(s): Hereditary hemochromatosis (CMS/HCC V24) Stable with phlebotomy every 2 months. Continue current schedule, order already renewed/placed. Reviewed lab work, repeat in 1 year or sooner as needed. Up to date with colonoscopies. * LISA Barraza - 01/01/2025 10:10 AM EDT Images from the original note were not included. CHIEF COMPLAINT: Follow-up (hemochromatosis) HPI: Heather Swift is a 69 y.o. old female who was originally referred to us by Valdo Azar MD now presents to the gastroenterology department today for a follow up of hemochromatosis Phlebotomy every 2 months with [facility]. Labs just completed 12/05/2024 show iron levels within normal limits and CBC within normal limits. Patient is a hard stick, but otherwise has no complaints about her phlebotomies. Denies GI concerns. Last colonoscopy 08/26/[address] Rand, recommended 10 year recall. ROS: GENERAL: No malaise, significant weight loss or fever HEENT: No changes in hearing or vision, nose bleeds or swallowing problems NECK: No lumps, goiter, pain or significant neck swelling RESPIRATORY: No cough, wheezing or shortness of breath CARDIOVASCULAR: No chest pain, leg swelling or palpitations GI: see above MUSCULOSKELETAL: No joint pain or swelling, back pain, or muscle pain. SKIN: No lesions, rash or itching The remainder of the review of systems is reviewed and negative. PROBLEM LIST: Patient Active Problem List Diagnosis Age-related osteoporosis without current pathological fracture Hereditary hemochromatosis (CMS/HCC V24) Hypocalcemia Mixed hyperlipidemia Vitamin D deficiency PAST SURGICAL HISTORY: Past Surgical History: Procedure Laterality Date COLONOSCOPY 08/26/2017 10 yr recall SOCIAL HISTORY: Social History Tobacco Use Smoking status: Never Smokeless tobacco: Never Substance Use Topics Alcohol use: Yes Comment: glass of wine FAMILY HISTORY: Family History Problem Relation Name Age of Onset Colon cancer Neg Hx Colon polyps Neg Hx ACTIVE MEDICATIONS: Current Outpatient Medications Medication Sig Dispense Refill CALCIUM CITRATE-VITAMIN D2 ORAL Calcium Citrate-Vitamin D Fosamax 70 mg tablet 1 tablet (70 mg total). (Patient not taking: Reported on 01/01/2025) No current facility-administered medications for this visit. ALLERGIES: No Known Allergies PHYSICAL EXAM: Visit Vitals Ht 1.524 m (60 ) Wt 55.3 kg (122 lb) LMP (LMP Unknown) BMI 23.83 kg/m?? OB Status Postmenopausal Smoking Status Never BSA 1.51 m?? APPEARANCE: Alert and in no acute distress EYES: PERRLA, conjunctiva and sclera normal. EXTREMITIES: Extremities warm and well perfused SKIN: Skin color, texture, turgor normal. NEURO: Awake, alert and oriented, normal ROM LABS: Lab Results Component Value Date WBC 7.0 12/05/2024 HGB 11.6 12/05/2024 HCT 37.3 12/05/2024 MCV 87.4 12/05/2024 PLT 279 12/05/2024 Iron and TIBC Order: [id number] Status: Final result Visible to patient: Yes (seen) Dx: Hemochromatosis, unspecified hemochro... 2 Result Notes Component Ref Range & Units 3 wk ago Iron 40 - 150 mcg/dL 56 TIBC 250 - 450 mcg/dL 340 Iron Saturation 15 - 50 % 16 Resulting Agency SP Specimen Collected: 12/05/24 13:18 EDT Ferritin Order: [id number] Status: Final result Visible to patient: Yes (seen) Dx: Hemochromatosis, unspecified hemochro... 2 Result Notes Component Ref Range & Units 3 wk ago Ferritin 8 - 252 ng/mL 10 Resulting Agency SP Specimen Collected: 12/05/24 13:18 EDT Assessment/Plan Assessment & Plan Hereditary hemochromatosis (CMS/HCC V24) Stable with phlebotomy every 2 months. Continue current schedule, order already renewed/placed. Reviewed lab work, repeat in 1 year or sooner as needed. Up to date with colonoscopies. Follow up in about 1 year (around 01/01/2026) for Recheck. Gastroenterology and Hepatology Practice [facility] [email or web address] [phone] [address] [facility] [address] [place] [id number] LISA Barraza documented in this encounter Plan of Treatment Not on file documented as of this encounter Visit Diagnoses Diagnosis Hereditary hemochromatosis (CMS/HCC V24)- Primary Hereditary hemochromatosis documented in this encounter Historical Medications * This list may reflect changes made after this encounter. CALCIUM CITRATE-VITAMIN D2 ORAL Calcium Citrate-Vitami n D Fosamax 70 mg tablet 1 tablet (70 mg total). added in this encounter Care Teams Guitar Repairer Relationship Specialty Start Date End Date Valdo Azar MD [address] [place] [address] PCP - General Internal Medicine 10/02/24 documented as of this encounter
--- OUTSIDE RECORDS SUMMARY | 2025-01-03 14:19 | XMS_ITS | Patient Health Record ---
Author Organization [facility] Address [address] [place] [phone] Care Team Providers Care Salvage Clerk Name Role Phone [facility] Primary Care Provider Allergies No Known Allergies Results Component Value Reference Range Notes BD BONE DENSITY DXA AXIAL [facility] Reviewed date:10/02/2024 01:58:29 PM Interpretation: Performing Lab: Notes/Report: See Note [facility], a member of [employer] HISTORY: The patient is a 69-year-old postmenopausal [...] probability of hip fracture of 6.2%. Code 71169 -------- FINAL REPORT -------- Dictated By: Judah Marie Dictated Date: 10/02/2024 10:07 ET Assigned Physician: Judah Marie Reviewed and Electronically Signed By: Judah Marie Signed Date: 10/02/2024 10:08 ET Workstation ID: [id number] Transcribed By: Self Edit Transcribed Date: 10/02/2024 10:07 ET MG MAMMO DIGITAL SCREENING W ARIAS BILAT Reviewed date:10/02/2024 01:58:29 PM Interpretation: Performing Lab: Notes/Report: See Note [facility], a member of [facility] CLINICAL: The patient is a 69 years Female presenting for routine screening mammography. COMPARISON: Most recently 08/17/2023 and most remotely 06/28/2017. TECHNIQUE: Full-field digital mammography of the breasts bilaterally consisting of tomosynthesis in MLO and CC projection is performed in the INNOBIe 2000-D unit. Computer aided detection utilizing the AgFlow system was utilized. FINDINGS: The breasts are [...] Additional right breast imaging recommended. Mammo Location: [facility], [address] [place] [address] -------- FINAL REPORT -------- Dictated By: Judah Marie Dictated Date: 10/02/2024 09:15 ET Assigned Physician: Judah Marie Reviewed and Electronically Signed By: Judah Marie Signed Date: 10/02/2024 09:23 ET Workstation ID: [id number] Transcribed By: Self Edit Transcribed Date: 10/02/2024 09:15 ET CBC WITH AUTO DIFFERENTIAL Reviewed date:12/07/2024 04:33:52 PM Interpretation: Performing Lab: Notes/Report: WBC 7.0 4.8-10.8 K/mcL RBC 4.30 3.80-4.80 M/mcL Hemoglobin 11.6 11.5-16.0 g/dL Hematocrit 37.3 35.0-47.0 % MCV 87.4 79.0-98.0 FL MCH 27.2 27.0-32.0 pcg MCHC 31.1 32.0-37.0 g/dL RDW 15.7 11.0-15.0 % Platelets 279 130-400 K/mcL MPV 11.2 7.0-11.0 FL NRBC 0.0 <1.0 % NRBC Absolute 0.00 <0.10 K/mcL Neutrophils Relative 55.4 Lymphocytes Relative 33.1 Monocytes Relative 8.7 Eosinophils Relative 1.8 Basophils Relative 0.7 Immature Granulocytes Relative 0.3 Neutrophils Absolute 3.90 1.50-7.00 K/mcL Lymphocytes Absolute 2.33 1.00-5.00 K/mcL Monocytes Absolute 0.61 0.20-1.00 K/mcL Eosinophils Absolute 0.13 0.00-0.50 K/mcL Basophils Absolute 0.05 0.00-0.20 K/mcL Immature Granulocytes Absolute 0.02 0.00-0.03 K/mcL FERRITIN Reviewed date:12/07/2024 04:33:52 PM Interpretation: Performing Lab: Notes/Report: Ferritin 10 8-252 ng/mL IRON AND TIBC Reviewed date:12/07/2024 04:33:52 PM Interpretation: Performing Lab: Notes/Report: Iron 56 40-150 mcg/dL TIBC 340 250-450 mcg/dL Iron Saturation 16 15-50 % Iron and TIBC-[id number] Reviewed date:08/24/2024 02:46:06 PM Interpretation: Performing Lab:[facility], Phone - [phone], Director - Mandeep Notes/Report: Iron Bind.Cap.(TIBC) 312 250-450 ug/dL UIBC 255 118-369 ug/dL Iron 57 27-139 ug/dL Iron Saturation 18 15-55 % Urinalysis, Complete-[id number] Reviewed date:08/24/2024 02:46:06 PM Interpretation: Performing Lab:[facility], Phone - [phone], Director - Mandeep Notes/Report: Specific [place] 1.019 1.005-1.030 pH 6.0 5.0-7.5 Urine-Color Yellow [...] seen /lpf Bacteria None seen None seen/Few Ferritin-[id number] Reviewed date:08/24/2024 02:46:06 PM Interpretation: Performing Lab:[facility] [address], Phone - [phone], Director - Mandeep Notes/Report: Ferritin 23 15-150 ng/mL CBC With Differential/Platel et-[id number] Reviewed date:08/24/2024 02:46:06 PM Interpretation: Performing Lab:[facility], [place], Phone - [phone], Director - Mandeep Notes/Report: WBC 8.6 3.4-10.8 [...] Grans (Abs) 0.0 0.0-0.1 x10E3/uL Vitamin D, 98-Xkuifyc-179065 Reviewed date:08/24/2024 02:46:06 PM Interpretation: Performing Lab:[facility], [address] [place] [address], [place], Phone - [phone], Director - Mandeep Notes/Report: Vitamin D, 25-Hydroxy 38.5 30.0-100.0 ng/mL Vitamin D deficiency has been defined by the Converse of Medicine and an Endocrine Society practice guideline as a level of serum 25-OH vitamin D less than 20 ng/mL (1,2). The Endocrine Society went on to further define vitamin D insufficiency as a level between 21 and 29 ng/mL (2). 1. IOM (Converse of Medicine). 2010. Dietary reference intakes for calcium and D. [place]: The National Academies Press. 2. Gagandeep MF, Lisa SMITH, Nathan BAILEY, et al. Evaluation, treatment, and prevention of vitamin D deficiency: an Endocrine Society clinical practice guideline. JCEM. 2010; 96(7):1911-30. Comp. Metabolic Panel (14)-[id number] Reviewed date:08/24/2024 02:46:06 PM Interpretation: Performing Lab:[facility] [place], [address] [facility], Phone - [phone], Director - Mandeep Notes/Report: Glucose 85 70-99 mg/dL BUN 17 [...] IU/L ALT (SGPT) 19 0-32 IU/L LP+Non-HDL Cholesterol-28042 5 Reviewed date:08/24/2024 02:46:06 PM Interpretation: Performing Lab:[facility] [place], [address] [facility], [place], Phone - [phone], Director - Mandeep Notes/Report: Cholesterol, Total 177 100-199 mg/dL Triglycerides 91 0-149 mg/dL HDL Cholesterol 63 >39 mg/dL VLDL Cholesterol Kavon 17 5-40 mg/dL LDL Chol Calc (NIH) 97 0-99 mg/dL Non-HDL Cholesterol 114 0-129 mg/dL HCV Antibody-[id number] Reviewed date:08/24/2024 02:46:06 PM Interpretation: Performing Lab:[facility] [place], [address] [facility], [place], Phone - [phone], Director - Mandeep Notes/Report: Hep C Virus [...] date:10/17/2024 10:02:35 AM Interpretation: Performing Lab: Notes/Report: MAMMO DIAGNOSTIC ADDL VIE WS RIGHT Reviewed date:10/15/2024 06:18:33 PM Interpretation: Performing Lab: Notes/Report: See Note [facility], a member of [employer] EXAM: DIAGNOSTIC MAMMOGRAPHY, UNILATERAL RIGHT ULTRASOUND: DIAGNOSTIC [...] year. [facility]ammography location: [facility] [address], [address] -------- FINAL REPORT -------- Dictated By: Santi Willis Dictated Date: 10/15/2024 16:48 ET Assigned Physician: Santi Willis Reviewed and Electronically Signed By: Santi Willis Signed Date: 10/15/2024 16:53 ET Workstation ID: [id number] Transcribed By: Self Edit Transcribed Date: 10/15/2024 16:48 ET US BREAST LIMITED RIGHT Reviewed date:10/15/2024 06:18:33 PM Interpretation: Performing Lab: Notes/Report: See Note [facility], a member of [employer] EXAM: DIAGNOSTIC MAMMOGRAPHY, UNILATERAL RIGHT ULTRASOUND: DIAGNOSTIC [...] year. Mammography location: [facility] [address], [address] -------- FINAL REPORT -------- Dictated By: Santi Willis Dictated Date: 10/15/2024 16:48 ET Assigned Physician: Santi Willis Reviewed and Electronically Signed By: Santi Willis Signed Date: 10/15/2024 16:53 ET Workstation ID: [id number] Transcribed By: Self Edit Transcribed Date: 10/15/2024 16:48 ET Reason For Referral No Information Medications Medication SIG (Take, Route, Frequency, Duration) Notes Start Date End Date Status Vitamin D 2000 UNIT 1 capsule Orally Onc e a day Active Calcium Citrate-Vitamin D Active Fosamax 70 MG 1 tablet Orally once a week; Duration: 30 day(s) Not-Taking Immunizations Vaccine Route Administration Date Status Comments *PREVNAR 20 Unknown 06/13/2023 Administered *Tdap IM Intramuscular 04/19/2018 Administered COVID 19 (Pfizer 12+) Unknown 08/28/2021 Administered COVID-19 Pfizer BiValent Booster Unknown 01/22/2022 Administered GJEOJ-34-Hpqrak Vaccine Unknown 04/22/2020 Administered SLOVQ-03-Bqulde Vaccine Unknown 05/13/2020 Administered HXUPM-01-Psippt Vaccine Unknown 02/17/2021 Administered Hep A, adult Unknown 07/18/2008 Administered Hep A, adult Unknown 06/07/2017 Administered Hep B, adult dosage, for intramuscular use Unknown 06/07/2017 Administered Hep B, adult dosage, for intramuscular use Unknown 09/22/2017 Administered Hep B, adult dosage, for intramuscular use IM Intramuscular 12/29/2017 Administered Mfd by [employer] Influenza Unknown 03/02/2018 Administered Influenza Unknown 01/31/2020 [...] Status Risk Notes Problem Vitamin D deficiency (99781697) Vitamin D deficiency, unspecified (E55.9) Active confirmed Problem Mixed hyperlipidemia (306461637) Mixed hyperlipidemia (E78.2) Active confirmed Problem Hereditary hemochromatosis (76825270) Hereditary hemochromatosis (E83.110) Active confirmed Problem Hypocalcemia (4005907) Hypocalcemia (E83.51) Active confirmed Problem Age-related osteoporosis (774026752) Age-related osteoporosis without current pathological fracture (M81.0) Active confirmed Problem Family history of malignant neoplasm of ovary (867861380) Family history of malignant neoplasm of ovary (Z80.41) Active confirmed Problem 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 Problem Hemangioma of skin and subcutaneous tissue (608575871) Hemangioma of skin and subcutaneous tissue (D18.01) Problem resolved confirmed Vital Signs Heart Rate 86 /min 11/06/2024 Temperature 97.4 degrees Fahrenheit 11/06/2024 Oximetry 99 % 11/06/2024 Blood pressure diastolic 69 mm Hg 11/06/2024 Height 5 ft in 11/06/2024 Blood pressure systolic 114 mm Hg 11/06/2024 Weight 119.8 lbs 11/06/2024 BMI 23.39 kg/m2 11/06/2024 Encounters Encounter Location Date Provider Diagnosis Valdo Azar MD [address] [id number] 08/14/2024 Valdo Azar Hereditary hemochromatosis E83.110 ; [...] screening for osteoporosis Z13.820 Valdo Azar MD [address] [id number] 11/06/2024 [facility] Hereditary hemochromatosis E83.110 ; Elevated blood-pressure reading, without diagnosis of hypertension R03.0 and Age-related osteoporosis without current pathological fracture M81.[address]Z [address] [place] [id number] 08/17/2024 Valdo Azar MD [address] [id number] 12/14/2024 [facility] [address] [id number] 12/14/2024 Valdo Azar Assessments Encounter Date Diagnosis (ICD Code) Assessment Notes Treatment Notes Treatment Clinical Notes Section Notes 08/14/2024 Hereditary hemochromatosis (ICD-10 - E83.110) Stable with periodic phlebotomy. Recheck labs. She is getting phlebotomy every 2 months. 11/06/2024 Elevated blood-pressure reading, without diagnosis of hypertension (ICD-10 - R03.0) Her blood pressure readings are reviewed. She has a collection of readings on a validated machine. These are entered into the chart as an image. She does not have hypertension and can continue lifestyle modification 11/06/2024 Hereditary hemochromatosis (ICD-10 - E83.110) Stable on recent labs as reviewed. 11/06/2024 Age-related osteoporosis without current pathological fracture (ICD-10 - M81.0) Her bone density is relatively stable. It is improved in certain areas in decreased in certain areas. Recommend she continue weightbearing exercise at the present time. 08/14/2024 Age-related osteoporosis without current pathological fracture [...] syntax. Also labs were reviewed with patient. 11/06/2024 Other This note was created with voice [...] IRON BINDING CAPACITY 07/29/2021 URINALYSIS 08/02/2022 URINALYSIS 05/09/2019 URINALYSIS 07/29/2021 URINALYSIS 07/29/2020 URINALYSIS 04/06/2017 VITAMIN D, 25-HYDROXY 05/09/2019 VITAMIN D, 25-HYDROXY 07/29/2020 VITAMIN D, 25-HYDROXY 04/06/2017 VITAMIN D, 25-HYDROXY 07/29/2021 VITAMIN D, 25-HYDROXY 08/02/2022 MYRIAD myRisk 04/06/2017 MMR (MEASLES, MUMPS, RUBELLA) IGG TITER 05/09/2019 Future Test Test Name Order Date Iron and TIBC-[id number] 01/31/2024 Ferritin-[id number] 01/31/2024 CBC With Differential/Platelet-[id number] Comp. Metabolic Panel ([id number] 2023 Next Appt Details Provider Name:Valdo Azar , 08/22/2025 01:00:00 PM, [address] [place] [address], [place] [address], [place], [place], [phone], Insurance Providers Payer Name Payer Address Payer Phone Subscriber Number Group Number Insured Name Patient Relationship to Insured Coverage Start Date Coverage End Date MEDICARE [address] [place] [phone] [id number] Jeniffer Heather Self - patient is the insured [facility] [address] [place] [phone] [id number] Heather Swift Self - patient is the [...]
--- OUTSIDE RECORDS SUMMARY | 2025-01-03 14:19 | XMS_ITS | Clinical Summary ---
Author Organization [facility] Address [address] [place] [address] Phone Care Team Providers Care Financial Advisor Name Role Phone Valdo Azar MD Primary Care Provider [phone] Allergies No known active allergies Medications Fosamax 70 mg tablet 1 tablet (70 mg total). Active CALCIUM CITRATE-VITAMIN D2 ORAL Calcium Citrate-Kelsy min D Active Active Problems Problem Noted Date Diagnosed Date Age-related osteoporosis wit hout current pathological fracture 12/26/2024 Hereditary hemochromatosis (CMS/HCC V24) 025 Assessment & Plan (01/01/2025 10:17 AM EDT): Stable with phlebotomy every 2 months. Continue current schedule, order already renewed/placed. Reviewed lab work, repeat in 1 year or sooner as needed. Up to date with colonoscopies. Hypocalcemia 12/26/2024 Mixed hyperlipidemia 12/26/2024 Vitamin D deficiency 12/26/2024 Encounters Date Type Department Care Team Description 01/01/2025 10:10 AM EDT Office Visit Gastroenterology - [address] [phone] Casandra Lemos PA Hereditary hemochromatosis (CMS/HCC V24) (Primary Dx) 10/31/2024 Telephone Gastroenterology - [address] [phone] Florentino Rand MD 10/15/2024 2:27 PM EDT - 10/15/2024 11:59 PM EDT Hospital Encounter [facility] Ultrasound [address] [place] [phone] Breast asymmetry Discharge Disposition: Home or Self Care 10/15/2024 1:44 PM EDT - 10/15/2024 11:59 PM EDT [facility] [address] [place] [phone] Breast asymmetry Discharge Disposition: Home or Self Care from Last 3 Months Surgical History Surgery Date Site/Laterality Comments COLONOSCOPY 08/26/2017 10 yr recall Family History Medical History Relation Name Comments Colon cancer Neg Hx Colon polyps Neg Hx Social History Tobacco Use Types Packs/Day Years [...] Mass Index 23.83 01/01/2025 9:57 AM EDT Plan of Treatment Health Maintenance Due Date Last Done Comments Zoster Vaccines (1 of 2) 08/08/2007 Cholesterol Screening (Lipid Panel) 04/03/2022 Hepatitis C Screening 04/03/2022 Medicare Annual Wellness Visit 04/03/2022 Social Influencers of Health Screening 04/03/2022 Falls Risk Assessment 2022 Depression Screening 05/02/2024 COVID-19 Vaccine ( season) 2024 11/09/2023, 01/22/2022, 08/28/2021, Additional history exists Influenza Vaccine (#1) 2024 3, 01/31/2020, 03/02/2018, Additional history exists Breast Cancer Screening 10/15/2026 10/16/19 25, 10/02/2024, 08/18/2023, Additional history exists Colorectal Cancer Screening: Colonoscopy 08/27/2027 08/26/2017 DTaP,Tdap,and Td Vaccines (3 - Td or [...] Procedure Name Priority Date/Time Associated Diagnosis Comments CBC WITH AUTO DIFFERENTIAL Routine 12/05/2024 1:18 PM EDT Hemochromatosis, unspecified hemochromatosis type FERRITIN Routine 12/05/2024 1:18 PM EDT Hemochromatosis, unspecified hemochromatosis type IRON AND TIBC Routine 12/05/2024 1:18 PM EDT Hemochromatosis, unspecified hemochromatosis type CBC AND DIFFERENTIAL Routine 12/05/2024 1:18 PM EDT Hemochromatosis, unspecified hemochromatosis type EXTERNAL CLINICAL LAB 10/31/2024 MG MAMMO DIAGNOSTIC ADDL VIEWS RIGHT Routine 10/15/2024 3:26 PM EDT Breast asymmetry US BREAST LIMITED RIGHT Routine 10/15/2024 3:12 PM EDT Breast asymmetry BD BONE DENSITY DXA AXIAL SKELETON Routine 10/02/2024 8:23 AM EDT Age-related osteoporosis without current pathological fracture EXTERNAL COLONOSCOPY REPORT Routine 08/26/2017 8:24 AM EDT from Last 3 Months or Most Recently Relevant to Health Maintenance Results * (ABNORMAL) CBC auto differential (12/05/2024 1:18 PM EDT) [facility] WBC 7.0 4.8 - 10.8 K/mcL LAB HEMETOLOGY METHOD 12/05/2024 3:30 PM EDT [facility] RBC 4.30 3.80 - 4.80 M/mcL LAB HEMETOLOGY METHOD 12/05/2024 3:30 PM EDT [facility] Hemoglobin 11.6 11.5 - 16.0 g/dL LAB HEMETOLOGY METHOD 12/05/2024 3:30 PM EDT [facility] Hematocrit 37.3 35.0 - 47.0 % LAB HEMETOLOGY METHOD 12/05/2024 3:30 PM EDT [facility] MCV 87.4 79.0 - 98.0 FL LAB HEMETOLOGY METHOD 12/05/2024 3:30 PM EDT [facility] MCH 27.2 27.0 - 32.0 pcg LAB HEMETOLOGY METHOD 12/05/2024 3:30 PM EDT [facility] MCHC 31.1(L) 32.0 - 37.0 g/dL LAB HEMETOLOGY METHOD 12/05/2024 3:30 PM EDT [facility] RDW 15.7(H) 11.0 - 15.0 % LAB HEMETOLOGY METHOD 12/05/2024 3:30 PM EDT [facility] Platelets 279 130 - 400 K/mcL LAB HEMETOLOGY [facility] MPV 11.2(H) 7.0 - 11.0 FL LAB HEMETOLOGY METHOD 12/05/2024 3:30 PM EDT [facility] NRBC 0.0 <1.0 % LAB HEMETOLOGY METHOD 12/05/2024 3:30 PM EDT [facility] NRBC Absolute 0.00 <0.10 K/mcL LAB HEMETOLOGY METHOD 12/05[facility]2024 [facility] Neutrophils Relative 55.4 % LAB HEMETOLOGY METHOD 12/05[facility]2024 [facility] Lymphocytes Relative 33.1 % LAB HEMETOLOGY METHOD 12/05/2024 3:30 PM EDT [facility] Monocytes Relative 8.7 % LAB HEMETOLOGY METHOD 12/05[facility]2024 [facility] Eosinophils Relative 1.8 % LAB HEMETOLOGY METHOD 12/05[facility]2024 [facility] Basophils Relative 0.7 % LAB HEMETOLOGY METHOD 12/05/2024 3:30 PM EDT [facility] Immature Granulocytes Relative 0.3 % LAB HEMETOLOGY METHOD 12/05/2024 3:30 PM EDT [facility] Neutrophils Absolute 3.90 1.50 - 7.00 K/mcL LAB HEMETOLOGY METHOD 12/05[facility]2024 [facility] Lymphocytes Absolute 2.33 1.00 - 5.00 K/mcL LAB HEMETOLOGY METHOD 12/05/2024 3:30 PM EDT [facility] Monocytes Absolute 0.61 0.20 - 1.00 K/mcL LAB HEMETOLOGY METHOD 12/05/2024 3:30 PM EDT [facility] Eosinophils Absolute 0.13 0.00 - 0.50 K/[facility] LAB HEMETOLOGY METHOD 12/05/2024 3:30 PM EDT [facility] Basophils Absolute 0.05 0.00 - 0.20 K/[facility] LAB HEMETOLOGY METHOD 12/05/2024 3:30 PM EDT [facility] Immature Granulocytes Absolute 0.02 0.00 - 0.03 K/mcL LAB HEMETOLOGY METHOD 12/05/2024 3:30 PM EDT [facility] Blood Venous blood specimen / Unknown Venipuncture / Unknown 12/05/2024 1:18 PM EDT 12/05/2024 3:21 PM EDT Florentino Rand MD LAB BLOOD ORDERABLES Final Result Performing Organization Address [facility] Co de Phone Number [facility] [address] [place] [address], [place] [phone] * Iron and TIBC (12/05/2024 1:18 PM EDT) Iron 56 40 - 150 mcg/dL LAB CHEMISTRY METHOD 12/05/2024 4:28 PM EDT [facility] TIBC 340 250 - 450 mcg/dL LAB CHEMISTRY METHOD 12/05/2024 4:28 PM EDT [facility] Iron Saturation 16 15 - 50 % LAB CHEMISTRY METHOD 12/05/2024 4:28 PM EDT [facility] Blood Venous blood specimen / Unknown Venipuncture / Unknown 12/05/2024 1:18 PM EDT 12/05/2024 3:20 PM EDT Florentino Rand MD LAB BLOOD ORDERABLES Final Result Performing Organization Address City/[facility]/ZIP Co de Phone Number [facility] [address] [place] [address], * Ferritin (12/05/2024 1:18 PM EDT) Ferritin 10 8 - 252 ng/mL LAB CHEMISTRY METHOD 12/05/2024 4:30 PM EDT [facility] Blood Venous blood specimen / Unknown Venipuncture / Unknown 12/05/2024 1:18 PM EDT 12/05/2024 3:20 PM EDT Florentino Rand MD LAB BLOOD ORDERABLES Final Result Performing Organization Address [facility] Co de Phone Number [facility] [address] [place] [address], [place] [phone] * External clinical lab (10/31/2024) Provider [facility] LAB BLOOD ORDERABLES Fin al Result * MG Mammo Diagnostic Addl Views Right [...] year. Mammography location: [facility] [address] [place], [address] -------- FINAL REPORT -------- Dictated By: Santi Willis Dictated Date: 10/15/2024 16:48 ET Assigned Physician: Santi Willis Reviewed and Electronically Signed By: Santi Willis Signed Date: 10/15/2024 16:53 ET Workstation ID: [id number] Transcribed By: Self Edit Transcribed Date: 10/15/2024 [...] year. Mammography location: [facility] [address], [address] -------- FINAL REPORT -------- Dictated By: Santi Willis Dictated Date: 10/15/2024 16:48 ET Assigned Physician: Santi Willis Reviewed and Electronically Signed By: Santi Willis Signed Date: 10/15/2024 16:53 ET Workstation ID: [id number] Transcribed By: Self Edit Transcribed Date: 10/15/2024 [...] year. Mammography location: [facility] [address], [address] -------- FINAL REPORT -------- Dictated By: Santi Willis Dictated Date: 10/15/2024 16:48 ET Assigned Physician: Santi Willis Reviewed and Electronically Signed By: Santi Willis Signed Date: 10/15/2024 16:53 ET Workstation ID: [id number] Transcribed By: Self Edit Transcribed Date: 10/15/2024 [...] year. Mammography location: [facility] [address], [address] -------- FINAL REPORT -------- Dictated By: Santi Willis Dictated Date: 10/15/2024 16:48 ET Assigned Physician: Santi Willis Reviewed and Electronically Signed By: Santi Willis Signed Date: 10/15/2024 16:53 ET Workstation ID: [id number] Transcribed By: Self Edit Transcribed Date: 10/15/2024 16:48 ET us Valdo Azar MD IM US PROCEDURES Final Result * BD Bone Density [...] probability of hip fracture of 6.2%. Code 17334 -------- FINAL REPORT -------- Dictated By: Judah Marie Dictated Date: 10/02/2024 10:07 ET Assigned Physician: Judah Marie Reviewed and Electronically Signed By: Judah Marie Signed Date: 10/02/2024 10:08 ET Workstation ID: [id number] Transcribed By: Self Edit Transcribed Date: 10/02/2024 [...] density of the femurs bilaterally is 0.758 gm/sp2qoevq is 75% of that of young normals [...] probability of hip fracture of 6.2%. Code 08249 -------- FINAL REPORT -------- Dictated By: Judah Marie Dictated Date: 10/02/2024 10:07 ET Assigned Physician: Judah Marie Reviewed and Electronically Signed By: Judah Marie Signed Date: 10/02/2024 10:08 ET Workstation ID: [id number] Transcribed By: Self Edit Transcribed Date: 10/02/2024 10:07 ET Valdo Azar MD IMG DXA PROCEDURES Final Resul t * External Colonoscopy Report (08/26/2017 8:24 AM EDT) Anatomical Region Laterality Modality Endoscopy Historical Provider GI~PROCEDURE ORDERABLES F inal Result from Last 3 Months or Most Recently Relevant to Health Maintenance Insurance MEDICARE [facility] Care Teams Financial Advisor Relationship Specialty Start Date End Date Valdo Azar MD [address] [address] PCP - General Internal Medicine 10/02/24
== END 2025-01-03 13:06 | disposition home or self-care (01) ==
LOC: HO.BBR 13:05
PROVIDERS: PCP Internal Medicine; Visit Provider Internal Medicine Gastroenterology
DX: Z13.89 Encounter for screening for other disorder (principal)

== ENCOUNTER 2025-03-15 11:05 | Outpatient (REF) | payer MEDICARE, OTHER, SELFPAY | END 2025-03-15 11:06 | disposition home or self-care (01) | LOC: HO.BBR 11:05 | PROVIDERS: PCP Internal Medicine; Visit Provider Internal Medicine Gastroenterology | DX: Z13.89 Encounter for screening for other disorder (principal) ==